=== PATIENT | female | born 1950 | race African-American/Black ===

== ENCOUNTER 2016-11-03 16:30 | Observation (INO) | payer OTHER ==
[2016-11-03] MEDS: NS 1000 ML 1,000 ML IV SCH (20:03)
[2016-11-03 20:11] LABS: BASOPHILS # (AUTO) 0.1 X10^3/uL (0.0-0.1); BASOPHILS % (AUTO) 1.6 % (0.2-1.0); EOSINOPHILS # (AUTO) 0.2 x10^3/uL (0.0-0.2); EOSINOPHILS % (AUTO) 2.5 % (0.9-2.9); HEMATOCRIT 29.5 % (36.0-47.0); LYMPHOCYTES # (AUTO) 1.4 X10^3/uL (1.3-2.9); LYMPHOCYTES % (AUTO) 20.3 % (21.0-51.0); MEAN CORPUSCULAR HEMOGLOBIN 30.1 pg (27.0-34.0); MEAN CORPUSCULAR HGB CONC 33.9 g/dL (33.0-35.0); MEAN CORPUSCULAR VOLUME 88.6 fL (80.0-100.0); MEAN PLATELET VOLUME 8.2 fL (7.4-11.0); MONOCYTES # (AUTO) 0.8 x10^3/uL (0.3-0.8); MONOCYTES % (AUTO) 11.8 % (0.0-13.0); NEUTROPHILS # (AUTO) 4.4 x10^3/uL (2.2-4.8); NEUTROPHILS % (AUTO) 63.8 % (42.0-75.0); PLATELET COUNT 152 X10^3/uL (150.0-450.0); RED BLOOD COUNT 3.33 X10^6/uL (3.5-5.4); RED CELL DISTRIBUTION WIDTH 14.4 % (11.6-16.5); WHITE BLOOD COUNT 6.9 X10^3/uL (3.6-10.0)
[2016-11-03 20:31] LABS: BILIRUBIN,URINE NEGATIVE (NEGATIVE); BLOOD/HEMOGLOBIN,URINE 1+ (NEGATIVE); GLUCOSE, URINE NEGATIVE (NEGATIVE); KETONES,URINE NEGATIVE (NEGATIVE); LEUKOCYTE ESTERASE ,URINE NEGATIVE (NEGATIVE); NITRITES,URINE NEGATIVE (NEGATIVE); PROTEIN,URINE 4+ (NEGATIVE); UROBILINOGEN,URINE NORMAL (NORMAL)
[2016-11-03 20:41] LABS: APPEARANCE,URINE HAZY (CLEAR); COLOR,URINE YELLOW (YELLOW); RBC,URINE 0-2 /HPF (NEGATIVE); SQUAMOUS EPITHELIAL CELL,UR FEW /HPF (NEGATIVE)
[2016-11-03] MEDS: PLAVIX PO SCH (20:41)
[2016-11-03 20:42] LABS: BACTERIA,URINE 1+ /HPF (NEGATIVE)
[2016-11-03] MEDS: ASPIRIN EC 81 MG PO SCH (20:42)
[2016-11-03] MEDS: NEURONTIN CAP 400 MG PO SCH (20:42)
[2016-11-03] MEDS: ZOCOR TAB 40 MG PO SCH (20:42)
[2016-11-03] MEDS: SNACK - Diabetic Appropriate PO SCH (20:45)
[2016-11-03 21:06] LABS: ALANINE AMINOTRANSFERASE 18 Units/L (12-78); ALBUMIN 3.3 g/dL (3.4-5.0); ALKALINE PHOSPHATASE 31 Units/L (46-116); ASPARTATE AMINO TRANSFERASE 18 Units/L (15-37); BLOOD UREA NITROGEN 36 mg/dL (7-18); CALCIUM 9.3 mg/dL (8.5-10.1); CARBON DIOXIDE 22.9 mmol/L (21-32); CHLORIDE 107 mmol/L (98-107); COR CA(FOR HYPOALB) 9.9 mg/dL (8.5-10.1); CREATININE 3.74 mg/dL (0.55-1.02); GLUCOSE 89 mg/dL (65-99); SODIUM 136 mmol/L (136-145); TOTAL PROTEIN 7.5 g/dL (6.4-8.2); eGFR BLACK RACES 16 (>60); eGFR NON BLACK RACES 13 (>60)
[2016-11-03] MEDS ORDERED: LEVEMIR SC SCH (22:00)
[2016-11-03] MEDS: APRESOLINE TAB 25 MG PO SCH (22:15)
[2016-11-04 05:28] LABS: ALANINE AMINOTRANSFERASE 15 Units/L (12-78); ALBUMIN 2.9 g/dL (3.4-5.0); ALKALINE PHOSPHATASE 25 Units/L (46-116); ASPARTATE AMINO TRANSFERASE 15 Units/L (15-37); BLOOD UREA NITROGEN 37 mg/dL (7-18); CALCIUM 8.8 mg/dL (8.5-10.1); CARBON DIOXIDE 23.4 mmol/L (21-32); CHLORIDE 109 mmol/L (98-107); COR CA(FOR HYPOALB) 9.7 mg/dL (8.5-10.1); CREATININE 3.77 mg/dL (0.55-1.02); SODIUM 140 mmol/L (136-145); TOTAL PROTEIN 6.8 g/dL (6.4-8.2); eGFR BLACK RACES 15 (>60); eGFR NON BLACK RACES 13 (>60)
[2016-11-04 05:30] LABS: GLUCOSE 48 mg/dL (65-99)
[2016-11-04 05:45] LABS: BASOPHILS % (AUTO) 0.4 % (0.2-1.0); EOSINOPHILS # (AUTO) 0.2 x10^3/uL (0.0-0.2); EOSINOPHILS % (AUTO) 2.9 % (0.9-2.9); HEMATOCRIT 27.8 % (36.0-47.0); HEMOGLOBIN 9.3 g/dL (12.0-16.0); LYMPHOCYTES # (AUTO) 1.8 X10^3/uL (1.3-2.9); LYMPHOCYTES % (AUTO) 28.4 % (21.0-51.0); MEAN CORPUSCULAR HGB CONC 33.7 g/dL (33.0-35.0); MEAN PLATELET VOLUME 8.9 fL (7.4-11.0); MONOCYTES # (AUTO) 0.8 x10^3/uL (0.3-0.8); MONOCYTES % (AUTO) 12.7 % (0.0-13.0); NEUTROPHILS # (AUTO) 3.6 x10^3/uL (2.2-4.8); NEUTROPHILS % (AUTO) 55.6 % (42.0-75.0); PLATELET COUNT 145 X10^3/uL (150.0-450.0); RED BLOOD COUNT 3.12 X10^6/uL (3.5-5.4); RED CELL DISTRIBUTION WIDTH 14.3 % (11.6-16.5); WHITE BLOOD COUNT 6.5 X10^3/uL (3.6-10.0)
[2016-11-04] MEDS: APRESOLINE TAB 25 MG PO SCH ×3 (05:48→22:50)
--- NOTE | 2016-11-04 06:18 | RAD ---
HISTORY: Hypertension Study: Chest one view Comparison: February 04, 2016 Findings: The trachea is midline. The cardiac silhouette is enlarged. No congestive heart failure is noted.. The lungs are clear without focal infiltrate or effusion. The bony thorax is unremarkable. IMPRESSION: 1. Cardiomegaly without congestive heart failure 2. Lungs clear Reported By:
[2016-11-04] MEDS: PLAVIX PO SCH (08:01)
[2016-11-04] MEDS: ASPIRIN EC 81 MG PO SCH (08:01)
[2016-11-04] MEDS: NEURONTIN CAP 400 MG PO SCH ×2 (08:01→21:36)
[2016-11-04] MEDS: ZESTRIL TAB 40 MG PO SCH (08:01)
[2016-11-04] MEDS: NS 1000 ML 1,000 ML IV SCH ×2 (08:02→21:38)
[2016-11-04 08:27] VITALS: BMI 28.3
[2016-11-04] MEDS ORDERED: CALAN SR 180 MG PO SCH (09:00)
--- NOTE | 2016-11-04 11:29 | RAD ---
HISTORY: Shortness of breath, acute CVA. Study: Portable chest. Comparison: Chest x-ray dated November 03, 2016. Findings: The trachea is midline. The cardiac silhouette is unchanged. Bibasilar scarring versus atelectasis . No obvious focal consolidation, pleural effusion, or pneumothorax. Chronic emphysematous changes. Surgical clip within the left upper lobe. The bony thorax is unremarkable. IMPRESSION: 1. No acute cardiopulmonary disease. Reported By:
[2016-11-04] MEDS: PriLOSEC PO SCH (13:11)
[2016-11-04] MEDS: ZANTAC PO SCH ×2 (13:11→21:35)
--- NOTE | 2016-11-04 14:11 | DR.UPDATE ---
H&P Update History and Physical Update: WAS SEEN IN OUR OFFICE TODAY. SHE WAS SENT FOR OUTPATIENT BRAIN CT. BRAIN CT REPORTED SMALL FOCUS OF DECREASED ATTENUATION IN THE LEFT SOPHIA WHICH COULD REPRESENT A SMALL LACUNE OR INFACRT OF UNCERTAIN AGE. SHE WAS ADMITTED FOR FURTHER TREATMENT AND EVALUATION. WE WILL CHECK A MRI/MRA BRAIN. A H&P WAS COMPLETED PRIOR TO ADMISSION. SHE HAS BEEN SEEN AND EXAMINED WITH NO CHANGES NOTED. Changes noted: NO Yes with the following:
--- NOTE | 2016-11-04 16:57 | PCM.PROG ---
Progress Note - Progress Note for Day of Date: 11/04/16 - Subjective Subjective: WAS A DIRECT ADMISSION FROM OUR OFFICE YESTERDAY FOR CONCERN OF AN ACUTE CVA. PATIENT WAS ALERT AND ORIENTED, IN BED, ON MORNING ROUNDS. PATIENT VERBALIZES COMPLAINTS OF GENERALIZED WEAKNESS AT THIS TIME. LUNGS ARE CLEAR ON AUSCULTATION. PUPILS PERLLA, EQUAL AND STRONG HANDGRIPS BILATERALLY. VITALS THIS AM ARE 97.9, 55, 25, 91%, 124/44. CBC REPORTS WBC 6.5, RBC 3.2, HGB 9.3, HCT 27.8. CMP REPORTS SODIUM 140, POTASSIUM 4.2, BUN 37, CREATININE 3.77. AKLALINE PHOSPHATASE 25, TOTAL PROTEIN 6.8, ALBUMIN 2.9. GLUCOSE THIS MORNING WAS 67. CHEST XRAY REPORTED CARDIOMEGALY WITHOUT CHF. WE ORDERED A MRI/MRA BRAIN AND ARE WAITING FOR TEST TO BE DONE. WE WILL PLAN TO RECHECK LABS AND XRAY AND FOLLOW UP WITH PATIENT IN AM. - Past Medical Family Social History Past Med/Fam/Surg Hx: No changes since H&P Allergies: Allergies MS Iodine [Iodine] Allergy (Unknown, Verified 11/04/16 07:20) PT STATED "IT HAS BEEN SO LONG AGO I DO NOT REMEMBER WHAT KIND OF REACTION I HAD" - Review of Systems ROS: No change since H&P - Vital Signs and I&O's Vital Signs: Temperature 98.4 F Pulse Rate [Apical] 67 Respiratory Rate 17 Blood Pressure [Left Arm] 107/53 Blood Pressure [Right Arm] 166/71 Blood Pressure 149/58 O2 Sat by Pulse Oximetry 99 Intake and Output: Intake & Output 11/02/16 11/03/16 11/04/16 11/05/16 11:59 11:59 11:59 11:59 Intake Total 943 907 Output Total 30 Balance 913 907 - Physical Exam Oriented: Normal. negative: Time, Person, Place, Not Oriented, Unable to test, Other Eyes: Normal. negative: Blurred Vision, Diplopia, Discharge, Pain, Redness, Photophobia, Other Ear: Normal. negative: Right, Left, Swelling, Ecchymosis, Hemotypanum, Abrasion , Laceration Nose: Normal. negative: Injected, Discharge, Blood, Other Throat: Normal. negative: Tonsillar Hypertrophy, Red, Exudate, Dry, Other Respiratory: Normal. negative: Right, Left, Generalized, Superior, Inferior, Diminished, Wheezes, Rales, Rhonchi, OTHER Cardiovascular: Normal. negative: Tachycardia, Bradycardia, Irregular, S3, S4, Systolic, Diastolic, Murmur, Edema, Other Auscultation: Bowel Sounds: Normal. negative: Bruit, Absent, Increased, Decreased, High Pitched, Other Palpation: Normal Tenderness: Normal. negative: Diffuse, RUQ, RLQ, LUQ, LLQ, Epigastric, Periumbilical, Suprapubic, Mild, Moderate, Severe, Rebound, Guarding, Rigidity, Other Skin: Normal. negative: Decreased Turgur, Rash, Papular, Macular, Maculopapular , Vesicular, Pustular, Petechial, Red, Tender, Hot, Diaphoresis, Wound, Bruising , Ecchymosis, Other Musculoskeletal: Normal. negative: Right, Left, Shoulder, Clavicle, Arm, Elbow , Forearm, Wrist, Hand, Hip, Thigh, Knee, Leg, Ankle, Foot, Back:Thoracic, Back: Lumbar, Back:Midline, Back:Paraspinous, Pelvis, Swelling, Tender, Deformity, Pulse Deficit, Motor Deficit, Sensory Deficit, Instability, Crepitance Psychiatric: Normal. negative: Anxiety, Depression, Agitation, Other Mood Description: Calm. negative: Angry, Apathetic, Depressed, Fearful, Flat, Happy, Hostile, Sad, Suspicious, Withdrawn, Anxious, Appropriate, Labile Affect: Normal. negative: Angry, Anxious, Depressed, Flat, Hysterical, Quiet, Violent Speech Pattern: Clear, Appropriate - Laboratory and Diagnostics Result Diagrams: 11/04/16 04:35 11/04/16 05:45 Labs: Laboratory WBC 6.5 X10^3/uL (3.6-10.0) 11/04/16 04:35 RBC 3.12 X10^6/uL (3.5-5.4) L 11/04/16 04:35 Hgb 9.3 g/dL (12.0-16.0) L 11/04/16 04:35 Hct 27.8 % (36.0-47.0) L 11/04/16 04:35 MCV 89.0 fL (80.0-100.0) 11/04/16 04:35 MCH 30.0 pg (27.0-34.0) 11/04/16 04:35 MCHC 33.7 g/dL (33.0-35.0) 11/04/16 04:35 RDW 14.3 % (11.6-16.5) 11/04/16 04:35 Plt Count 145 X10^3/uL (150.0-450.0) L 11/04/16 04:35 MPV 8.9 fL (7.4-11.0) 11/04/16 04:35 Neut % 55.6 % (42.0-75.0) 11/04/16 04:35 Lymph % 28.4 % (21.0-51.0) 11/04/16 04:35 [place] % 12.7 % (0.0-13.0) 11/04/16 04:35 Eos % 2.9 % (0.9-2.9) 11/04/16 04:35 Baso % 0.4 % (0.2-1.0) 11/04/16 04:35 Neut # 3.6 x10^3/uL (2.2-4.8) 11/04/16 04:35 Lymph # 1.8 X10^3/uL (1.3-2.9) 11/04/16 04:35 [place] # 0.8 x10^3/uL (0.3-0.8) 11/04/16 04:35 Eos # 0.2 x10^3/uL (0.0-0.2) 11/04/16 04:35 Baso # 0.0 X10^3/uL (0.0-0.1) 11/04/16 04:35 Absolute Nucleated RBC 0.0 /100WBC 11/04/16 04:35 Sodium 140 mmol/L (136-145) 11/04/16 04:35 Corrected Sodium TNP 11/04/16 04:35 Potassium 4.2 mmol/L (3.5-5.1) 11/04/16 04:35 Chloride 109 mmol/L (98-107) H 11/04/16 04:35 Carbon Dioxide 23.4 mmol/L (21-32) 11/04/16 04:35 BUN 37 mg/dL (7-18) H 11/04/16 04:35 Creatinine 3.77 mg/dL (0.55-1.02) H 11/04/16 04:35 Est GFR (MDRD) Af Amer 15 (>60) L 11/04/16 04:35 Est GFR (MDRD) Non-Af 13 (>60) L 11/04/16 04:35 Glucose 67 mg/dL (65-99) 11/04/16 05:45 Calcium 8.8 mg/dL (8.5-10.1) 11/04/16 04:35 Corrected Calcium 9.7 mg/dL (8.5-10.1) 11/04/16 04:35 Total Bilirubin 0.30 mg/dL (0.2-1.0) 11/04/16 04:35 AST 15 Units/L (15-37) 11/04/16 04:35 ALT 15 Units/L (12-78) 11/04/16 04:35 Alkaline Phosphatase 25 Units/L (46-116) L 11/04/16 04:35 Total Protein 6.8 g/dL (6.4-8.2) 11/04/16 04:35 Albumin 2.9 g/dL (3.4-5.0) L 11/04/16 04:35 Globulin 3.9 g/dL (2.5-4.5) 11/04/16 04:35 Albumin/Globulin Ratio 0.7 Ratio (1.1-2.1) L 11/04/16 04:35 Specimen Type Clean catch urine 11/03/16 20:15 Urine Color Yellow (YELLOW) 11/03/16 20:15 Urine Appearance Hazy (CLEAR) 11/03/16 20:15 Urine pH 5.0 (5.0 - 8.0) 11/03/16 20:15 Ur Specific [place] 1.020 (1.000-1.030) 11/03/16 20:15 Urine Protein 4+ (NEGATIVE) 11/03/16 20:15 Urine Glucose (UA) Negative (NEGATIVE) 11/03/16 20:15 Urine Ketones Negative (NEGATIVE) 11/03/16 20:15 Urine Occult Blood 1+ (NEGATIVE) 11/03/16 20:15 Urine Nitrite Negative (NEGATIVE) 11/03/16 20:15 Urine Bilirubin Negative (NEGATIVE) 11/03/16 20:15 Urine Urobilinogen Normal (NORMAL) 11/03/16 20:15 Ur Leukocyte Esterase Negative (NEGATIVE) 11/03/16 20:15 Urine RBC 0-2 /HPF (NEGATIVE) 11/03/16 20:15 Urine WBC 0-3 /HPF (NEGATIVE) 11/03/16 20:15 Ur Squamous Epith Cells Few /HPF (NEGATIVE) 11/03/16 20:15 Urine Bacteria 1+ /HPF (NEGATIVE) 11/03/16 20:15 Ur Culture Indicated? No/not indicated 11/03/16 20:15 - Plan (1) CVA (cerebral vascular accident) Status: Acute Qualifiers: CVA mechanism: unspecified Precerebral and cerebral artery: P Laterality of affected vessel: L Qualified Code(s): I63.9 - Cerebral infarction, unspecified Plan: CHECK MRI/MRA, CONTINUE ASA, CONTINUE PLAVIX, CONTINUE TO MONITOR (2) Renal failure Status: Acute Qualifiers: Renal failure chronicity: chronic Acute renal failure type: A Chronic kidney disease stage: unspecified stage Qualified Code(s): N18.9 - Chronic kidney disease, unspecified Plan: NS @ 50ML/HR, CONTINUE TO MONITOR (3) Diabetes mellitus, type 2 Status: Chronic Qualifiers: Diabetes mellitus complication status: with kidney complications Diabetes mellitus complication detail: with chronic kidney disease Diabetic retinopathy severity: D Proliferative retinopathy type: P Diabetes mellitus macular edema: D Diabetes mellitus assisted insulin use: with assisted use Laterality: L Chronic kidney disease stage: stage 4 (severe) Qualified Code(s): E11.22 - Type 2 diabetes mellitus with diabetic chronic kidney disease Plan: OTBS, CONTINUE TO MONITOR (4) Hypertension Status: Chronic Qualifiers: Hypertension type: essential hypertension Qualified Code(s): I10 - Essential (primary) hypertension Plan: CONTINUE HYDRALAZINE, LISINOPRIL, VERAPAMIL, CONTINUE TO MONITOR (5) GERD (gastroesophageal reflux disease) Status: Chronic Qualifiers: Esophagitis presence: E Plan: CONTINUE PRILOSEC, CONTINUE ZANTAC, CONTINUE TO MONITOR
--- NOTE | 2016-11-04 18:26 | MRI ---
MRI Brain without contrast HISTORY: Headache dizziness and questionable abnormality on recent head CT Comparison:11/03/16 Technique: Multiplanar multi-sequence MRI of the brain was obtained utilizing standard departmental protocol. Sagittal and axial T1 weighted images were obtained. Axial T2 and flair weighted images were performed as well. Axial diffusion weighted and ADC trace mapping was performed. Findings: There is mild bilateral periventricular and deep white matter FLAIR in T to signal hyperintensity. A ddition there is small amount of increased T2 signal within the left occipital lobe consistent with gliosis in the setting of chronic microvascular ischemic disease. The midline structures appear unremarkable. The evaluation of the brain parenchyma demonstrates no abnormal signal characteristics to suggest intraparenchymal mass or hemorrhage. No extra-axial flui d collections are observed. The ventricular system appears symmetric and nondilated. The CP angle is normal in its appearance without brainstem mass or evidence for acoustic neuroma. The flow void s on both T1 and T2 weighted imaging appear unremarkable. Evaluation of the diffusion weighted imag ing does not demonstrate abnormal signal characteristics to suggest acute ischemic change. The extr acranial structures are unremarkable. IMPRESSION: 1.No acute intracranial abnormality. 2. Bilateral periventricular and deep white matter FLAIR and T2 signal hyperintensity most consisten t chronic microvascular ischemic disease. Curvilinear increased T2 signal within the left occipital lobe also likely represents sequela of chronic ischemic disease/gliosis. Reported By:
--- NOTE | 2016-11-04 18:30 | MRI ---
MRA brain without contrast Indication: Hypertension with blurred vision Technique: 3D [id number] MRA of the brain was performed. No IV contrast administration was perfo rmed. 3D reconstructed mid imaging of the [place] was also provided. Findings: Anterior intracranial arterial circulation is normal, there is no stenosis, occlusion or a neurysmal dilatation. The posterior intracranial arterial circulation demonstrates persistent circulation of bilateral dental professional. No stenosis occlusion or aneurysmal dilatation. The vertebral arterie s are normal in caliber without dominance. Impression: 1.No hemodynamic significant stenosis, occlusion or evidence of aneurysmal dilatation within the ant erior or posterior intracranial arterial circulation. 2. Persistent circulation involving bilateral dental professional. Reported By:
[2016-11-04] MEDS: SNACK - Diabetic Appropriate PO SCH (20:00)
[2016-11-04] MEDS ORDERED: MILK OF MAGNESIA PO SCH (21:00)
[2016-11-04] MEDS ORDERED: COLACE CAP 100 MG PO SCH (21:00)
[2016-11-04] MEDS: ZOCOR TAB 40 MG PO SCH (21:36)
[2016-11-05] MEDS: NS 1000 ML 1,000 ML IV SCH (03:00)
[2016-11-05] MEDS: APRESOLINE TAB 25 MG PO SCH (06:24)
[2016-11-05 06:28] LABS: BASOPHILS % (AUTO) 0.3 % (0.2-1.0); EOSINOPHILS # (AUTO) 0.2 x10^3/uL (0.0-0.2); EOSINOPHILS % (AUTO) 2.1 % (0.9-2.9); HEMOGLOBIN 8.8 g/dL (12.0-16.0); LYMPHOCYTES # (AUTO) 1.7 X10^3/uL (1.3-2.9); LYMPHOCYTES % (AUTO) 20.8 % (21.0-51.0); MEAN CORPUSCULAR HEMOGLOBIN 30.5 pg (27.0-34.0); MEAN CORPUSCULAR HGB CONC 33.8 g/dL (33.0-35.0); MEAN CORPUSCULAR VOLUME 90.2 fL (80.0-100.0); MEAN PLATELET VOLUME 9.2 fL (7.4-11.0); MONOCYTES # (AUTO) 1.1 x10^3/uL (0.3-0.8); MONOCYTES % (AUTO) 13.7 % (0.0-13.0); NEUTROPHILS # (AUTO) 5.1 x10^3/uL (2.2-4.8); NEUTROPHILS % (AUTO) 63.1 % (42.0-75.0); PLATELET COUNT 144 X10^3/uL (150.0-450.0); RED BLOOD COUNT 2.89 X10^6/uL (3.5-5.4); RED CELL DISTRIBUTION WIDTH 14.5 % (11.6-16.5); WHITE BLOOD COUNT 8.1 X10^3/uL (3.6-10.0)
[2016-11-05 06:42] LABS: ALBUMIN 2.9 g/dL (3.4-5.0); CALCIUM 8.3 mg/dL (8.5-10.1); CARBON DIOXIDE 20.7 mmol/L (21-32); COR CA(FOR HYPOALB) 9.2 mg/dL (8.5-10.1); CREATININE 4.49 mg/dL (0.55-1.02); TOTAL PROTEIN 6.7 g/dL (6.4-8.2)
[2016-11-05] MEDS: ASPIRIN EC 81 MG PO SCH (09:22)
[2016-11-05] MEDS: ZANTAC PO SCH (09:22)
[2016-11-05] MEDS: ZESTRIL TAB 40 MG PO SCH (09:22)
[2016-11-05] MEDS: PLAVIX PO SCH (09:23)
[2016-11-05] MEDS: PriLOSEC PO SCH (09:23)
[2016-11-05] MEDS: NEURONTIN CAP 400 MG PO SCH (09:23)
[2016-11-05 14:39] VITALS: BP 102/32
== END 2016-11-05 12:50 | disposition home or self-care (01) ==
LOC: ICU 16:30
PROVIDERS: ADMIT Internal Medicine; ATTEND Internal Medicine
DX: I63.8 Other cerebral infarction (principal); I10 Essential (primary) hypertension; E11.65 Type 2 diabetes mellitus with hyperglycemia; N17.8 Other acute kidney failure; D64.89 Other specified anemias; R94.4 Abnormal results of kidney function studies; I51.7 Cardiomegaly; R20.2 Paresthesia of skin; R53.1 Weakness
CPT/HCPCS: 36415; 70544; 70551; 71010; 80053; 81001; 82947; 85025; A4216; A4222; 1956; G0378

== ENCOUNTER 2016-11-07 02:20 | Emergency (ER) | payer OTHER ==
[2016-11-07 02:35] VITALS: BMI 28.3
[2016-11-07] MEDS ORDERED: DUONEB 0.5 MG/3 MG ONE ×2 (02:54→03:20)
[2016-11-07 02:57] LABS: BASOPHILS # (AUTO) 0.1 X10^3/uL (0.0-0.1); BASOPHILS % (AUTO) 0.6 % (0.2-1.0); EOSINOPHILS # (AUTO) 0.1 x10^3/uL (0.0-0.2); EOSINOPHILS % (AUTO) 0.5 % (0.9-2.9); HEMATOCRIT 27.7 % (36.0-47.0); HEMOGLOBIN 9.2 g/dL (12.0-16.0); LYMPHOCYTES # (AUTO) 1.3 X10^3/uL (1.3-2.9); LYMPHOCYTES % (AUTO) 9.7 % (21.0-51.0); MEAN CORPUSCULAR HEMOGLOBIN 30.1 pg (27.0-34.0); MEAN CORPUSCULAR HGB CONC 33.2 g/dL (33.0-35.0); MEAN CORPUSCULAR VOLUME 90.5 fL (80.0-100.0); MEAN PLATELET VOLUME 9.4 fL (7.4-11.0); MONOCYTES # (AUTO) 1.2 x10^3/uL (0.3-0.8); MONOCYTES % (AUTO) 9.5 % (0.0-13.0); NEUTROPHILS # (AUTO) 10.4 x10^3/uL (2.2-4.8); NEUTROPHILS % (AUTO) 79.7 % (42.0-75.0); PLATELET COUNT 179 X10^3/uL (150.0-450.0); RED BLOOD COUNT 3.06 X10^6/uL (3.5-5.4); RED CELL DISTRIBUTION WIDTH 14.7 % (11.6-16.5); WHITE BLOOD COUNT 13.1 X10^3/uL (3.6-10.0)
[2016-11-07] MEDS ORDERED: DUONEB 0.5 MG/3 MG NEB ONE ×2 (03:00→03:20)
[2016-11-07] MEDS ORDERED: SOLU-Medrol 125 MG VIAL IVP ONE (03:02)
--- NOTE | 2016-11-07 03:02 | RAD ---
EXAM: Chest X-ray INDICATION: Shortness of breath COMPARISION: Prior exam from November 04, 2016 TECHNIQUE: Single view FINDINGS: The heart is mildly enlarged and there is central vascular congestion. The interstitial markings are prominent bilaterally. No pneumothorax. There is a right-sided pleural effusion. Alveolar consolida tion is seen throughout both lungs, predominately in the lung bases. The regional skeleton is intact . IMPRESSION: Findings are most characteristic of changes associated congestive heart failure. There is cardiomega ly, central vascular congestion, and pulmonary edema. There is a right-sided pleural effusion. Reported By:
[2016-11-07] MEDS ORDERED: SOLU-Medrol 125 MG VIAL ONE (03:05)
[2016-11-07 03:13] LABS: ALANINE AMINOTRANSFERASE 19 Units/L (12-78); ALBUMIN 3.4 g/dL (3.4-5.0); ALKALINE PHOSPHATASE 35 Units/L (46-116); ASPARTATE AMINO TRANSFERASE 18 Units/L (15-37); BLOOD UREA NITROGEN 61 mg/dL (7-18); CALCIUM 8.6 mg/dL (8.5-10.1); CHLORIDE 102 mmol/L (98-107); COR NA(FOR HYPERGLY) 131 mmol/L (136-145); CREATINE KINASE 66 Units/L (26-192); CREATINE KINASE MB < 1.0 ng/mL (0-4.0); CREATININE 5.94 mg/dL (0.55-1.02); GLUCOSE 199 mg/dL (65-99); SODIUM 129 mmol/L (136-145); TOTAL PROTEIN 7.9 g/dL (6.4-8.2); TROPONIN I < 0.02 ng/mL (0-1.5); eGFR BLACK RACES 9 (>60); eGFR NON BLACK RACES 8 (>60)
[2016-11-07 03:16] LABS: B-TYPE NATRIURETIC PEPTIDE 207 pg/mL (0-79)
[2016-11-07] MEDS ORDERED: KAYEXALATE ONE (03:26)
[2016-11-07] MEDS ORDERED: LASIX IVP ONE ×2 (03:29→03:30)
[2016-11-07] MEDS ORDERED: KAYEXALATE PO ONE (03:31)
--- NOTE | 2016-11-07 03:38 | DR.GENAD ---
HPI - PCP Primary Care Physician: DUANE - Complaint/Symptoms Chief Complaint Doctors Comments: SOB Chief Complaint:: SLURRED SPEECH SHORTNESS OF BREATH, WEAK. Self Treatment fo Chief Complaint: PATIENT FAMILY STATES THAT SINCE BEING RELEASED ON THE PATIENT HAS DEVELOPED SLURRED SPEECH AND IS STILL SHORT OF BREATH. ALSO THAT PATIENT SOUNDS WET IN THE LUNGS AND HAD A BLOOD GLUCOSE OVER 300 50 UNITS OF LEVEMIR - Nurses notes reviewed Nurses Notes Review: Yes - Source History Provided: Patient - Mode of Arrival Mode of Arrival: Ambulatory - Timing Onset of Chief Complaint: 11/07/16 - Duration Duration: Since Onset How lon Duration: Hours - Severity Severity: Moderate - Modifying Factors Worsens:: lying flat - Associated Signs and Symptoms Associated Signs and Symptoms: nonproductive cough PMH - PMH Past Medical History: Yes Past Medical History: Diabetes, Hypertension, Renal Disease Past Surgical History: Yes Surgical History: Cholecystectomy - Family History History of Family Medical Conditions: Yes Family Medical History: Diabetes Mellitus, Hypertension - Social History Does patient currently use any type of tobacco product: No Have you used tobacco products in the last 12 months: No Type of Tobacco Use: None Does any household member use tobacco: No Alcohol Use: None Do you use any recreational Drugs:: No Lives With: Family Lives Where: Home - infectious screening In the last 2 months have you had wt loss of >10#?: NO Have you had fever, night sweats or hemotysis?: No Have you traveled outside the country in the last 6 months?: No Isolation: Standard ROS - Review of Systems Constitutional: No Symptoms Reported Respiratoy: Productive Cough, Short of Breath, Wheezing Cardiovascular: No Symptoms Reported Gastrointestinal/Abdominal: No Symptoms Reported Genitourinary: No Symptoms Reported Neurological: No Symptoms Reported Musculoskeletal: No Symptoms Reported Integumentary: No Symptoms Reported Hematologic/Lymphatic: No Symptoms Reported Endocrine: No Symptoms Reported Psychiatric: No Symptoms Reported, Anxiety All Other Systems: Reviewed and Negative PE - Vital Signs Vitals: Temperature 98.1 F Pulse Rate 79 Blood Pressure [Left Arm] 102/32 Blood Pressure [Right Arm] 166/71 Blood Pressure 88/54 O2 Sat by Pulse Oximetry 75 - General Limitations: No Limitations General Appearance: Alert, Anxious, In Distress - Head Head Exam: Normal Inspection, Atraumatic - Eyes Eye exam: Normal Appearance - ENT ENT Exam: Normal Exam, Normal Oropharynx External Ear Exam: Normal External Inspection Nose Exam: Normal Nose Exam Mouth Exam: Normal Inspection Throat Exam: Normal Inspection - Neck Neck Exam: Normal Inspection - Chest Chest Inspection: Symmetric Chest Wall Rise - Respiratory Respiratory Exam: Respiratory Distress Respiratory Exam: Bilateral Wheezing, Bilateral Crackles, Bilateral Decreased Breath Sounds - Cardiovascular Cardiovascular Exam: Regular Rate, Normal Rhythm, Normal Heart Sounds - Abdominal Exam Abdominal Exam: Normal Inspection, Normal Bowel Sounds, Soft - Extremities Extremities Exam: Normal Inspection - Back Back Exam: Normal Inspection - Neurologic Neurological Exam: Alert, Oriented X3, CN II-XII Intact - Psychiatric Psychiatric Exam: Normal Affect, Normal Mood - Skin Skin Exam: Warm, Dry, Intact, Normal Color ROR - Labs Reviewed Result Diagrams: 11/07/16 02:40 11/07/16 02:40 Laboratory: WBC 13.1 X10^3/uL (3.6-10.0) H 11/07/16 02:40 RBC 3.06 X10^6/uL (3.5-5.4) L 11/07/16 02:40 Hgb 9.2 g/dL (12.0-16.0) L 11/07/16 02:40 Hct 27.7 % (36.0-47.0) L 11/07/16 02:40 MCV 90.5 fL (80.0-100.0) 11/07/16 02:40 MCH 30.1 pg (27.0-34.0) 11/07/16 02:40 MCHC 33.2 g/dL (33.0-35.0) 11/07/16 02:40 RDW 14.7 % (11.6-16.5) 11/07/16 02:40 Plt Count 179 X10^3/uL (150.0-450.0) 11/07/16 02:40 MPV 9.4 fL (7.4-11.0) 11/07/16 02:40 Neut % 79.7 % (42.0-75.0) H 11/07/16 02:40 Lymph % 9.7 % (21.0-51.0) L 11/07/16 02:40 [place] % 9.5 % (0.0-13.0) 11/07/16 02:40 Eos % 0.5 % (0.9-2.9) L 11/07/16 02:40 Baso % 0.6 % (0.2-1.0) 11/07/16 02:40 Neut # 10.4 x10^3/uL (2.2-4.8) H 11/07/16 02:40 Lymph # 1.3 X10^3/uL (1.3-2.9) 11/07/16 02:40 [place] # 1.2 x10^3/uL (0.3-0.8) H 11/07/16 02:40 Eos # 0.1 x10^3/uL (0.0-0.2) 11/07/16 02:40 Baso # 0.1 X10^3/uL (0.0-0.1) 11/07/16 02:40 Absolute Nucleated RBC 0.1 /100WBC 11/07/16 02:40 Sodium 129 mmol/L (136-145) L 11/07/16 02:40 Corrected Sodium 131 mmol/L (136-145) L 11/07/16 02:40 Potassium 6.9 mmol/L (3.5-5.1) H* 11/07/16 02:40 Chloride 102 mmol/L (98-107) 11/07/16 02:40 Carbon Dioxide 19.0 mmol/L (21-32) L 11/07/16 02:40 BUN 61 mg/dL (7-18) H 11/07/16 02:40 Creatinine 5.94 mg/dL (0.55-1.02) H 11/07/16 02:40 Est GFR (MDRD) Af Amer 9 (>60) L 11/07/16 02:40 Est GFR (MDRD) Non-Af 8 (>60) L 11/07/16 02:40 Glucose 199 mg/dL (65-99) H 11/07/16 02:40 Calcium 8.6 mg/dL (8.5-10.1) 11/07/16 02:40 Corrected Calcium TNP 11/07/16 02:40 Total Bilirubin 0.40 mg/dL (0.2-1.0) 11/07/16 02:40 AST 18 Units/L (15-37) 11/07/16 02:40 ALT 19 Units/L (12-78) 11/07/16 02:40 Alkaline Phosphatase 35 Units/L (46-116) L 11/07/16 02:40 Creatine Kinase 66 Units/L (26-192) 11/07/16 02:40 CK-MB (CK-2) < 1.0 ng/mL (0-4.0) 11/07/16 02:40 Troponin I < 0.02 ng/mL (0-1.5) 11/07/16 02:40 Total Protein 7.9 g/dL (6.4-8.2) 11/07/16 02:40 Albumin 3.4 g/dL (3.4-5.0) 11/07/16 02:40 Globulin 4.5 g/dL (2.5-4.5) 11/07/16 02:40 Albumin/Globulin Ratio 0.8 Ratio (1.1-2.1) L 11/07/16 02:40 - Diagnosis Discharge Problem: Renal failure (ARF), acute on chronic, CHF (congestive heart failure) - Discharge Plan Disposition: Disch/Tx to Hospital Condition: Stable - Follow ups/Referrals Follow ups/Referrals: Giovany Olvera [Primary Care Provider] - 3 days - Instructions Additional Notes - Additional Notes Additional Notes: I spoke with at [facility] in [place] and he agrees to accept this patient in transfer.
[2016-11-07 03:56] LABS: ABG BASE EXCESS -9.9 mmol/L (-2.0-2.0)
[2016-11-07] MEDS ORDERED: HumuLIN R ONE (03:56)
[2016-11-07] MEDS ORDERED: SODIUM BICARBONATE 8.4% INJ ADULT ONE (03:56)
[2016-11-07 03:57] LABS: ABG ALLEN TEST POS; ABG HCO3 15.1 mmol/L (22-26)
[2016-11-07] MEDS ORDERED: HumuLIN R IV ONE (03:57)
[2016-11-07] MEDS ORDERED: SODIUM BICARBONATE 8.4% INJ ADULT IVP ONE (03:58)
[2016-11-07 04:10] VITALS: BP 120/57
[2016-11-07 04:15] LABS: BILIRUBIN,URINE 1+ (NEGATIVE); BLOOD/HEMOGLOBIN,URINE NEGATIVE (NEGATIVE); GLUCOSE, URINE NEGATIVE (NEGATIVE); KETONES,URINE NEGATIVE (NEGATIVE); LEUKOCYTE ESTERASE ,URINE NEGATIVE (NEGATIVE); NITRITES,URINE NEGATIVE (NEGATIVE); PROTEIN,URINE 3+ (NEGATIVE); UROBILINOGEN,URINE NORMAL (NORMAL)
[2016-11-07 04:35] LABS: AMORPHOUS SEDIMENT,UR 1+ /HPF (NEGATIVE); APPEARANCE,URINE SLIGHTLY HAZY (CLEAR); BACTERIA,URINE NEGATIVE /HPF (NEGATIVE); COLOR,URINE YELLOW (YELLOW); RBC,URINE 0-3 /HPF (NEGATIVE); SQUAMOUS EPITHELIAL CELL,UR RARE /HPF (NEGATIVE)
[2016-11-07] MEDS ORDERED: SNACK - Diabetic Appropriate PO SCH (20:00)
== END 2016-11-07 04:20 | disposition hospice, inpatient (51) ==
LOC: ER 02:20
PROC: 0T9B70Z Drainage of Bladder with Drainage Device, Via Natural or Artificial Opening (ICD-10-PCS; principal; 2016-11-07)
DX: N18.9 Chronic kidney disease, unspecified (principal); I50.9 Heart failure, unspecified; I51.7 Cardiomegaly; R06.02 Shortness of breath; J90 Pleural effusion, not elsewhere classified
CPT/HCPCS: 36415; 36600; 51702; 71010; 80053; 81001; 82550; 82553; 82803; 83735; 83880; 84484; 85025; 93005; 94640; 96365; 96374; 96375; 99284; 99285; A4222; J1815; J1940; J2930; J3490; J7620

== ENCOUNTER → 2017-01-20 | Outpatient (CLI) | payer OTHER ==
--- NOTE | 2017-01-26 16:06 | MG ---
HISTORY: SCREENING Comparison: Multiple priors dating back to July 22, 2011 FINDINGS: Bilateral CC and MLO projections of the right and left breast were obtained. Scattered fibroglandula r tissue is seen to be present without significant interval change. No suspicious architectural dist ortion, mass or clustered microcalcifications can be observed to suggest malignancy. No skin thicken ing or nipple retraction is appreciated. No pathological lymphadenopathy can be identified. Benign- appearing calcifications are noted within the right and left breast. IMPRESSION: NO RADIOGRAPHIC EVIDENCE OF MALIGNANCY. ACR CATEGORY 2 - benign findings. FOLLOW-UP EXAM 1 YEAR. Diagnostic CAD was utilized and reviewed. * 0 (ZERO) - ASSESSMENT INCOMPLETE; ADDITIONAL IMAGING IS NEEDED. * 1/1 (ONE) - NEGATIVE. * 2/II (TWO) - BENIGN FINDINGS. * 3/III (THREE) - PROBABLY BENIGN FINDING; SHORT INTERVAL FOLLOW-UP SUGGESTED. * 4/IV (FOUR) - SUSPICIOUS ABNORMALITY; BIOPSY SHOULD BE CONSIDERED. * 5/V - HIGHLY SUSPICIOUS OF MALIGNANCY; BIOPSY SHOULD BE PERFORMED. A NEGATIVE X-RAY REPORT SHOULD NOT DELAY BIOPSY IF A DOMINANT OR CLINICALLY SUSPICIOUS MASS IS PRESENT; 4 TO 8 PERCENT OF CANCERS ARE NOT IDENTIFIED BY X-RAY. A NEGA TIVE REPORT MAY REINFORCE THE CLINICAL IMPRESSION. ADENOSIS AND DENSE BREASTS MAY OBSCURE AN UNDERLY ING NEOPLASM. Reported By:
== END ==
LOC: RAD 10:03
PROVIDERS: ATTEND Specialist
DX: Z12.31 Encounter for screening mammogram for malignant neoplasm of breast (principal)
CPT/HCPCS: 77067

== ENCOUNTER 2018-08-25 14:30 | Inpatient (IN) ==
[2018-08-25 15:06] LABS: BASOPHILS % (AUTO) 0.5 % (0.2-1.0); EOSINOPHILS # (AUTO) 0.3 x10^3/uL (0.0-0.2); EOSINOPHILS % (AUTO) 4.2 % (0.9-2.9); HEMATOCRIT 26.5 % (36.0-47.0); HEMOGLOBIN 8.6 g/dL (12.0-16.0); LYMPHOCYTES % (AUTO) 15.4 % (21.0-51.0); MEAN CORPUSCULAR HEMOGLOBIN 30.1 pg (27.0-34.0); MEAN CORPUSCULAR HGB CONC 32.6 g/dL (33.0-35.0); MEAN CORPUSCULAR VOLUME 92.2 fL (80.0-100.0); MEAN PLATELET VOLUME 8.6 fL (7.4-11.0); MONOCYTES # (AUTO) 0.7 x10^3/uL (0.3-0.8); MONOCYTES % (AUTO) 10.6 % (0.0-13.0); NEUTROPHILS # (AUTO) 4.3 x10^3/uL (2.2-4.8); NEUTROPHILS % (AUTO) 69.3 % (42.0-75.0); PLATELET COUNT 140 X10^3/uL (150.0-450.0); RED BLOOD COUNT 2.87 X10^6/uL (3.5-5.4); RED CELL DISTRIBUTION WIDTH 14.7 % (11.6-16.5); WHITE BLOOD COUNT 6.2 X10^3/uL (3.6-10.0)
[2018-08-25 15:24] LABS: BLOOD UREA NITROGEN 41 mg/dL (7-18); CALCIUM 8.6 mg/dL (8.5-10.1); CARBON DIOXIDE 20.3 mmol/L (21-32); CHLORIDE 106 mmol/L (98-107); COR NA(FOR HYPERGLY) 141 mmol/L (136-145); CREATININE 6.24 mg/dL (0.55-1.02); SODIUM 140 mmol/L (136-145); TROPONIN I < 0.02 ng/mL (0-1.5); eGFR NON BLACK RACES 7 (>60)
[2018-08-25 15:30] LABS: ALANINE AMINOTRANSFERASE 9 Units/L (12-78); ALBUMIN 3.3 g/dL (3.4-5.0); ALKALINE PHOSPHATASE 48 Units/L (46-116); ASPARTATE AMINO TRANSFERASE 13 Units/L (15-37); CKMB % 1.1 % (<4); COR CA(FOR HYPOALB) 9.2 mg/dL (8.5-10.1); CREATINE KINASE 156 Units/L (26-192); CREATINE KINASE MB 1.7 ng/mL (0-4.0); TOTAL PROTEIN 7.5 g/dL (6.4-8.2)
--- NOTE | 2018-08-25 16:09 | RAD ---
HISTORY: Shortness of breath, chest pain Study: Single view chest Comparison: 11/07/2016 Findings: There are bilateral pleural effusions with cardiomegaly and central vascular congestion. There are increased interstitial markings suggesting edema. No pneumothorax identified. There chronic degenerative changes of the bony thorax. IMPRESSION: 1. Findings suggestive of interstitial pulmonary edema with bilateral effusions. Reported By:
[2018-08-25 16:44] LABS: ERYTHROCYTE SEDIMENTATION RATE 46 MM/HOUR (0-20)
[2018-08-25] MEDS ORDERED: LASIX IVP ONE (17:18)
[2018-08-25] MEDS ORDERED: LASIX ONE (17:21)
[2018-08-25 18:26] LABS: BILIRUBIN,URINE NEGATIVE (NEGATIVE); BLOOD/HEMOGLOBIN,URINE 2+ (NEGATIVE); GLUCOSE, URINE 1+ (NEGATIVE); KETONES,URINE NEGATIVE (NEGATIVE); LEUKOCYTE ESTERASE ,URINE 3+ (NEGATIVE); NITRITES,URINE NEGATIVE (NEGATIVE); PROTEIN,URINE 4+ (NEGATIVE); UROBILINOGEN,URINE NORMAL (NORMAL)
[2018-08-25 18:28] LABS: APPEARANCE,URINE SLIGHTLY HAZY (CLEAR); COLOR,URINE YELLOW (YELLOW)
[2018-08-25 18:37] LABS: BACTERIA,URINE TRACE /HPF (NEGATIVE); RBC,URINE 0-2 /HPF (NONE SEEN); SQUAMOUS EPITHELIAL CELL,UR RARE /HPF (NEGATIVE)
[2018-08-25 19:54] VITALS: BMI 33.1
[2018-08-25] MEDS: XARELTO PO SCH (21:44)
--- NOTE | 2018-08-26 01:50 | DR.SOBA ---
HPI Time Seen Time Seen by Provider: 08/25/18 15:36 Primary Care Physician Primary Care Physician: AMBER ALBARRAN Complaints Chief Complaint Doctors Comments: 68 y/o female sent over by the [employer]SPORTATION MANAGER for evaluation of low O2 sat noted in the office today. The pt. has had SOB x 3 days. She has some chest discomfort that she described as a feeling of her chest closing in. She has no cough. She denies palpitations. Chief Complaint:: PT. C/O SHORTNESS OF BREATH, ONSET OF THURSDAY. PT. SEEN PCP TODAY AND WAS SENT HERE FOR EVALUATION. AMBER ALBARRAN, STATES PT'S O2 SAT WAS 87% ON ROOM AIR. PT. C/O CHEST DISCOMFORT. PT. STATES "IT FEELS LIKE IT IS CLOSING IN." Reviewed Nurses Notes Reviewed: Yes Source History Provided: Patient Mode of Arrival Mode of Arrival: Ambulatory Timing Onset of Chief Complaint: 08/23/18 Context Onset:: At Rest PE Risk Factors:: None History of:: CHF Currently on:: Neither Prehospital Care:: None Modifying Factors Worsens:: Exertion Improves:: Rest Associated Signs and Symptoms Associated Signs and Symptoms: None If Cough Cough: None PMH PMH Past Medical History: Yes Past Medical History: Diabetes, Hypertension and Renal Disease Past Surgical History: Yes Surgical History: Cholecystectomy Family History History of Family Medical Conditions: Yes Family Medical History: Diabetes Mellitus and Hypertension Social History Does patient currently use any type of tobacco product: No Have you used tobacco products in the last 12 months: No Type of Tobacco Use: None Does any household member use tobacco: No Alcohol Use: None Do you use any recreational Drugs:: No Lives With: Alone Lives Where: Home infectious screening In the last 2 months have you had wt loss of >10#?: NO Have you had fever, night sweats or hemotysis?: No Have you traveled outside the country in the last 6 months?: No Isolation: Standard ROS Review of Systems Constitutional: No Symptoms Reported Eyes: No Symptoms Reported ENTM: No Symptoms Reported Respiratoy: Short of Breath Cardiovascular: No Symptoms Reported Gastrointestinal/Abdominal: No Symptoms Reported Genitourinary: No Symptoms Reported Neurological: No Symptoms Reported Musculoskeletal: No Symptoms Reported Integumentary: No Symptoms Reported Hematologic/Lymphatic: No Symptoms Reported Endocrine: No Symptoms Reported Psychiatric: No Symptoms Reported PE Vital Signs Vitals: Temperature 99.1 F Pulse Rate [Left Brachial] 73 Pulse Rate [Apical] 70 Pulse Rate 82 Respiratory Rate 22 Blood Pressure [Left Arm] 115/57 Blood Pressure [Right Arm] 166/71 Blood Pressure 170/72 O2 Sat by Pulse Oximetry 96 General Limitations: No Limitations General Appearance: Alert and In No Apparent Distress Head Head Exam: Normal Inspection, Atraumatic and Normocephalic Eyes Eye exam: Normal Appearance and EOMI ENT ENT Exam: Normal Oropharynx and Mucous Membranes Moist Neck Neck Exam: Normal Inspection, Full ROM and Trachea Midline Chest Chest Inspection: Normal Inspection Respiratory Respiratory Exam: Bilateral: Rhonchi Cardiovascular Cardiovascular Exam: Regular Rate, Normal Rhythm, +S1 and +S2 Abdominal Exam Abdominal Exam: Normal Inspection, Normal Bowel Sounds and Soft Extremities Extremities Exam: Normal Inspection and Full ROM; negative Tenderness, Normal Capillary Refill, Edema, Joint Swelling and Calf Tenderness Back Back Exam: Normal Inspection Neurologic Neurological Exam: Alert and Oriented X3 Psychiatric Psychiatric Exam: Normal Affect and Normal Mood Skin Skin Exam: Warm, Dry and Normal Color COURSE Reevaluation 1st: Improved 2nd: Unchanged Education/Counseling Education/Counseling: Patient, Family, Education and Counseling Educated On: Treatment, Diagnosis, Prognosis and Needs for Follow Up ROR Labs Reviewed Laboratory Results Reviewed?: Yes Result Diagrams: 08/25/18 14:48 08/25/18 14:48 Laboratory: WBC 6.2 X10^3/uL (3.6-10.0) 08/25/18 14:48 RBC 2.87 X10^6/uL (3.5-5.4) L 08/25/18 14:48 Hgb 8.6 g/dL (12.0-16.0) L 08/25/18 14:48 Hct 26.5 % (36.0-47.0) L 08/25/18 14:48 MCV 92.2 fL (80.0-100.0) 08/25/18 14:48 MCH 30.1 pg (27.0-34.0) 08/25/18 14:48 MCHC 32.6 g/dL (33.0-35.0) L 08/25/18 14:48 RDW 14.7 % (11.6-16.5) 08/25/18 14:48 Plt Count 140 X10^3/uL (150.0-450.0) L 08/25/18 14:48 MPV 8.6 fL (7.4-11.0) 08/25/18 14:48 Neut % (Auto) 69.3 % (42.0-75.0) 08/25/18 14:48 Lymph % (Auto) 15.4 % (21.0-51.0) L 08/25/18 14:48 Real % (Auto) 10.6 % (0.0-13.0) 08/25/18 14:48 Eos % (Auto) 4.2 % (0.9-2.9) H 08/25/18 14:48 Baso % (Auto) 0.5 % (0.2-1.0) 08/25/18 14:48 Neut # (Auto) 4.3 x10^3/uL (2.2-4.8) 08/25/18 14:48 Lymph # (Auto) 1.0 X10^3/uL (1.3-2.9) L 08/25/18 14:48 Real # (Auto) 0.7 x10^3/uL (0.3-0.8) 08/25/18 14:48 Eos # (Auto) 0.3 x10^3/uL (0.0-0.2) H 08/25/18 14:48 Baso # (Auto) 0.0 X10^3/uL (0.0-0.1) 08/25/18 14:48 Absolute Nucleated RBC 0.0 /100WBC 08/25/18 14:48 ESR 46 MM/HOUR (0-20) H 08/25/18 15:58 INR Target Range - 08/25/18 14:48 INR 1.16 (0.8-1.3) 08/25/18 14:48 APTT 32.7 SECONDS (22.9-36.5) 08/25/18 14:48 PTT Comment - 08/25/18 14:48 D-Dimer 1680 ng/mL (0-400) H* 08/25/18 14:48 Sodium 140 mmol/L (136-145) 08/25/18 14:48 Corrected Sodium 141 mmol/L (136-145) 08/25/18 14:48 Potassium 5.0 mmol/L (3.5-5.1) 08/25/18 14:48 Chloride 106 mmol/L (98-107) 08/25/18 14:48 Carbon Dioxide 20.3 mmol/L (21-32) L 08/25/18 14:48 BUN 41 mg/dL (7-18) H 08/25/18 14:48 Creatinine 6.24 mg/dL (0.55-1.02) H 08/25/18 14:48 Est GFR (MDRD) Af Amer 9 (>60) L 08/25/18 14:48 Est GFR (MDRD) Non-Af 7 (>60) L 08/25/18 14:48 Glucose 161 mg/dL (65-99) H 08/25/18 14:48 POC Glucose (mg/dL) 162 mg/dL (65-99) H 08/25/18 21:41 Calcium 8.6 mg/dL (8.5-10.1) 08/25/18 14:48 Corrected Calcium 9.2 mg/dL (8.5-10.1) 08/25/18 14:48 Total Bilirubin 0.30 mg/dL (0.2-1.0) 08/25/18 14:48 AST 13 Units/L (15-37) L 08/25/18 14:48 ALT 9 Units/L (12-78) L 08/25/18 14:48 Alkaline Phosphatase 48 Units/L (46-116) 08/25/18 14:48 Creatine Kinase 156 Units/L (26-192) 08/25/18 14:48 CK-MB (CK-2) 1.7 ng/mL (0-4.0) 08/25/18 14:48 CK/CKMB % Calc 1.1 % (<4) 08/25/18 14:48 Troponin I < 0.02 ng/mL (0-1.5) 08/25/18 14:48 C-Reactive Protein 5.40 mg/L (0-3.0) H 08/25/18 15:58 Total Protein 7.5 g/dL (6.4-8.2) 08/25/18 14:48 Albumin 3.3 g/dL (3.4-5.0) L 08/25/18 14:48 Globulin 4.2 g/dL (2.5-4.5) 08/25/18 14:48 Albumin/Globulin Ratio 0.8 Ratio (1.1-2.1) L 08/25/18 14:48 Specimen Type Clean catch urine 08/25/18 15:45 Urine Color Yellow (YELLOW) 08/25/18 15:45 Urine Appearance Slightly hazy (CLEAR) 08/25/18 15:45 Urine pH 7.0 (5.0 - 8.0) 08/25/18 15:45 Ur Specific [place] 1.010 (1.000-1.030) 08/25/18 15:45 Urine Protein 4+ (NEGATIVE) 08/25/18 15:45 Urine Glucose (UA) 1+ (NEGATIVE) 08/25/18 15:45 Urine Ketones Negative (NEGATIVE) 08/25/18 15:45 Urine Occult Blood 2+ (NEGATIVE) 08/25/18 15:45 Urine Nitrite Negative (NEGATIVE) 08/25/18 15:45 Urine Bilirubin Negative (NEGATIVE) 08/25/18 15:45 Urine Urobilinogen Normal (NORMAL) 08/25/18 15:45 Ur Leukocyte Esterase 3+ (NEGATIVE) 08/25/18 15:45 Urine RBC 0-2 /HPF (NONE SEEN) 08/25/18 15:45 Urine WBC 10-20 /HPF (NONE SEEN) 08/25/18 15:45 Ur Squamous Epith Cells Rare /HPF (NEGATIVE) 08/25/18 15:45 Urine Bacteria Trace /HPF (NEGATIVE) 08/25/18 15:45 Ur Culture Indicated? Yes/culture set up 08/25/18 15:45 Diagnosis Discharge Problem: Acute dyspnea, D-dimer, elevated, Benign essential HTN CHF (congestive heart failure) Qualifiers: Heart failure type: unspecified Heart failure chronicity: chronic Qualified Code(s): I50.9 - Heart failure, unspecified Diabetes Qualifiers: Diabetes mellitus type: type 2 Diabetes mellitus termite exterminator helper insulin use: without termite exterminator helper use Diabetes mellitus complication status: with kidney complications Diabetes mellitus complication detail: with chronic kidney disease Chronic kidney disease stage: stage 5, not on chronic dialysis Qualified Code(s): E11.22 - Type 2 diabetes mellitus with diabetic chronic kidney disease
[2018-08-26 05:20] LABS: BASOPHILS % (AUTO) 0.8 % (0.2-1.0); EOSINOPHILS # (AUTO) 0.2 x10^3/uL (0.0-0.2); EOSINOPHILS % (AUTO) 4.4 % (0.9-2.9); HEMOGLOBIN 8.5 g/dL (12.0-16.0); LYMPHOCYTES # (AUTO) 1.1 X10^3/uL (1.3-2.9); LYMPHOCYTES % (AUTO) 19.1 % (21.0-51.0); MEAN CORPUSCULAR HEMOGLOBIN 30.3 pg (27.0-34.0); MEAN CORPUSCULAR HGB CONC 32.7 g/dL (33.0-35.0); MEAN CORPUSCULAR VOLUME 92.6 fL (80.0-100.0); MEAN PLATELET VOLUME 9.4 fL (7.4-11.0); MONOCYTES # (AUTO) 0.6 x10^3/uL (0.3-0.8); MONOCYTES % (AUTO) 11.6 % (0.0-13.0); NEUTROPHILS # (AUTO) 3.6 x10^3/uL (2.2-4.8); NEUTROPHILS % (AUTO) 64.1 % (42.0-75.0); PLATELET COUNT 126 X10^3/uL (150.0-450.0); RED CELL DISTRIBUTION WIDTH 14.4 % (11.6-16.5); WHITE BLOOD COUNT 5.6 X10^3/uL (3.6-10.0)
[2018-08-26 05:36] LABS: ALANINE AMINOTRANSFERASE 6 Units/L (12-78); ALKALINE PHOSPHATASE 47 Units/L (46-116); ASPARTATE AMINO TRANSFERASE 12 Units/L (15-37); BLOOD UREA NITROGEN 42 mg/dL (7-18); CALCIUM 8.5 mg/dL (8.5-10.1); CHLORIDE 108 mmol/L (98-107); COR CA(FOR HYPOALB) 9.3 mg/dL (8.5-10.1); CREATININE 6.32 mg/dL (0.55-1.02); SODIUM 140 mmol/L (136-145); eGFR NON BLACK RACES 7 (>60)
--- NOTE | 2018-08-26 06:36 | RAD ---
HISTORY: Shortness of breath Study: Chest AP portable Comparison: 08/25/2018 Findings: The heart is enlarged. The nolan are prominent and indistinct and the interstitium is prominent all suggestive of interstitial pulmonary edema not significantly changed from the prior examination. There is a right pleural effusion also unchanged. A small left pleural effusion may be present. No alveolar edema or alveolar infiltrates are identified. The bony thorax is unremarkable. IMPRESSION: Continued cardiomegaly with congestive heart failure in the form of interstitial edema No change right pleural effusion Reported By:
[2018-08-26] MEDS ORDERED: VITAMIN D (1.25MG) PO SCH (09:30)
[2018-08-26] MEDS ORDERED: VERAPAMIL 360 MG PO SCH (09:30)
[2018-08-26 09:46] LABS: ABG BASE EXCESS -2.4 mmol/L (-2.0-2.0); ABG HCO3 23.2 mmol/L (22-26)
[2018-08-26 09:47] LABS: ABG ALLEN TEST POS
[2018-08-26] MEDS ORDERED: LOPRESSOR TAB 25 MG PO SCH (10:00)
[2018-08-26] MEDS ORDERED: ROCALTROL PO SCH (10:00)
[2018-08-26] MEDS ORDERED: NEURONTIN CAP 400 MG PO SCH (10:00)
[2018-08-26] MEDS ORDERED: APRESOLINE TAB 25 MG PO SCH (10:00)
--- NOTE | 2018-08-26 10:15 | DR.H&P ---
H&P - History & Physical for Day of: H&P Date: 08/25/18 - Chief Complaint Chief Complaint: SHORTNESS OF BREATH - History of Present Illness History of Present Illness: IS A 68 YEAR OLD PATIENT OF OURS WHO PRESENTED TO THE ER WITH COMPLAINTS OF SHORTNESS OF BREATH X 3 DAYS. SHE REPORTS BEING SEEN IN THE OFFICE TODAY, WHERE HER OXYGEN SATURATIONS WERE NOTED TO BE 87% ON ROOM AIR. SHE ALSO COMPLAINS OF CHEST DISCOMFORT. ON EXAMINATION, SHE IS NOTED WITH SCATTERED RHONCHI. ON ARRIVAL, VITALS WERE 97.5-82-22-89%-170/72. LABS WERE OBTAINED. ABNORMAL LAB VALUES INCLUDE THE FOLLOWING: RBC 2.87, HGB 8.6, HCT 26.5, PLT COUNT 140, D-DIMER 1680, CARBON DIOXIDE 20.3, BUN 41, CREATININE 6.24, GLUCOSE 161, AST 13, ALT 9, CRP 5.40, ALBUMIN 3.3. URINALYSIS REVEALED WBC 10-20, RBC 0-2, LEUKOCYTES 3+, BACTERIA TRACE. AN MADAI AND LUPUS PANEL WERE OBTAINED AND ARE PENDING. URINE CULTURE PENDING. A CHEST XRAY WAS OBTAINED AND REVLEAED: Findings suggestive of interstitial pulmonary edema with bilateral effusions. EKG REVEALED: SINUS RHYTHM WITH HR 77. SHE REPORTS BEING UNDER THE CARE OF A LEAFLET DISTRIBUTOR. SHE RECENTLY HAD A SHUNT PLACED AND IS GETTING READY TO START DIALYSIS. SHE RECEIVED LASIX 20MG IV X 1 DOSE IN THE ER. SHE WAS ADMITTED FOR FURTHER EVALUATION AND TREATMENT OF CHF, SHORTNESS OF BREATH, RULE OUT PE, AND RENAL FAILURE. WE PLAN TO FOLLOW UP WITH AM LABS AND CONTINUE TO MONITOR. - Past Medical History Past Medical History: Hypertension, Diabetes, Renal Disease - Past Surgical History Surgical History: Cholecystectomy - Family History Family Medical History: Diabetes Mellitus, Hypertension - Social History Does patient currently use any type of tobacco product: No Have you used tobacco products in the last 12 months: No Type of Tobacco Use: None Does any household member use tobacco: No Alcohol Use: None Drug Use: None - Medications Home Medications: iodine Allergy (Verified 08/25/18 14:38) CONTINUE taking the following medications amlodipine 10 mg PO DAILY 08/25/18 [History] calcitriol 0.5 mcg PO WEEKLY 08/25/18 [History] doxazosin 2 mg PO HS 08/25/18 [History] ergocalciferol (vitamin D2) [Vitamin D2] 50,000 cap PO .[id number] 08/25/18 [History] furosemide [Lasix] 40 mg PO DAILY 08/25/18 [History] gabapentin [Neurontin] 400 mg PO BID 08/25/18 [History] hydralazine 50 mg PO BID 08/25/18 [History] metoprolol tartrate 25 mg PO BID 08/25/18 [History] minoxidil 5 mg PO DAILY 08/25/18 [History] zolpidem 0 mg PO HS 08/25/18 [History] - Review of Systems Constitutional: Weakness Eyes: No Symptoms Reported ENT: No Symptoms Reported Respiratory: See HPI, Shortness of Breath, SOB with Excertion Cardiovascular: No Symptoms Reported Gastrointestinal: No Symptoms Reported Genitourinary: No Symptoms Reported Musculoskeletal: No Symptoms Reported Skin: No Symptoms Reported Neurological: Weakness - Physical Exam Vital Signs: Temperature 98.5 F Pulse Rate [Left Brachial] 72 Pulse Rate [Apical] 70 Pulse Rate 82 Respiratory Rate 20 Blood Pressure [Left Arm] 138/63 Blood Pressure [Right Arm] 166/71 Blood Pressure 170/72 O2 Sat by Pulse Oximetry 94 Oriented: Normal Eyes: Normal Ear: Normal Nose: Normal Throat: Normal Respiratory: Diminished Throughout, Wheezes Throughout Cardiovascular: Normal. negative: S3, S4, Murmur : Normal Auscultation: Bowel Sounds: Normal Palpation: Normal Tenderness: Normal Skin: Normal Musculoskeletal: Normal Psychiatric: Normal Mood Description: Calm Affect: Normal Speech Pattern: Clear - Assessment/Plan (1) CHF (congestive heart failure) Qualifiers: Heart failure type: unspecified Heart failure chronicity: chronic Qualified Code(s): I50.9 - Heart failure, unspecified Status: Acute Plan: ADMIT, IV LASIX, RESPIRATORY TREATMENTS, SUPPLEMENTAL OXYGEN. (2) Acute dyspnea Status: Acute (3) Renal failure (ARF), acute on chronic Qualifiers: Acute renal failure type: unspecified Chronic kidney disease stage: unspecified stage Qualified Code(s): N17.9 - Acute kidney failure, unspecified; N18.9 - Chronic kidney disease, unspecified Status: Acute - Allergies Allergies/Adverse Reactions: Allergies Allergy/AdvReac Type Severity Reaction Status Date / Time iodine Allergy Verified 08/25/18 14:38
[2018-08-26] MEDS ORDERED: LOPRESSOR TAB 50 MG ONE (10:39)
[2018-08-26] MEDS: XARELTO PO SCH ×2 (10:47→20:03)
[2018-08-26] MEDS: ZANTAC PO SCH (10:47)
[2018-08-26] MEDS: PriLOSEC PO SCH (10:47)
[2018-08-26] MEDS: MINOXIDIL PO SCH (10:48)
[2018-08-26] MEDS ORDERED: LOPRESSOR TAB 25 MG ONE (10:48)
[2018-08-26] MEDS: LASIX IVP SCH ×2 (10:50→20:03)
[2018-08-26] MEDS: XOPENEX 1.25 MG/3 ML NEBULE NEB SCH ×3 (16:05→21:40)
[2018-08-26] MEDS: LOPRESSOR TAB 25 MG PO SCH (20:02)
[2018-08-26] MEDS: CARDURA PO SCH (20:02)
[2018-08-26] MEDS: AMBIEN PO SCH (20:02)
[2018-08-26] MEDS: ZOCOR TAB 20 MG PO SCH (20:02)
[2018-08-26] MEDS: SNACK - Diabetic Appropriate PO SCH (21:15)
[2018-08-27] MEDS: XOPENEX 1.25 MG/3 ML NEBULE NEB SCH ×4 (01:16→16:00)
[2018-08-27 06:23] LABS: BASOPHILS % (AUTO) 0.6 % (0.2-1.0); EOSINOPHILS # (AUTO) 0.2 x10^3/uL (0.0-0.2); EOSINOPHILS % (AUTO) 4.3 % (0.9-2.9); HEMATOCRIT 24.9 % (36.0-47.0); HEMOGLOBIN 8.2 g/dL (12.0-16.0); LYMPHOCYTES # (AUTO) 1.2 X10^3/uL (1.3-2.9); LYMPHOCYTES % (AUTO) 22.6 % (21.0-51.0); MEAN CORPUSCULAR HEMOGLOBIN 30.4 pg (27.0-34.0); MEAN CORPUSCULAR HGB CONC 32.9 g/dL (33.0-35.0); MEAN CORPUSCULAR VOLUME 92.4 fL (80.0-100.0); MEAN PLATELET VOLUME 9.1 fL (7.4-11.0); MONOCYTES # (AUTO) 0.7 x10^3/uL (0.3-0.8); MONOCYTES % (AUTO) 12.3 % (0.0-13.0); NEUTROPHILS # (AUTO) 3.3 x10^3/uL (2.2-4.8); NEUTROPHILS % (AUTO) 60.2 % (42.0-75.0); PLATELET COUNT 126 X10^3/uL (150.0-450.0); RED CELL DISTRIBUTION WIDTH 14.6 % (11.6-16.5); WHITE BLOOD COUNT 5.4 X10^3/uL (3.6-10.0)
[2018-08-27 06:53] LABS: ALBUMIN 3.1 g/dL (3.4-5.0); CALCIUM 8.4 mg/dL (8.5-10.1); CARBON DIOXIDE 21.8 mmol/L (21-32); COR CA(FOR HYPOALB) 9.1 mg/dL (8.5-10.1); CREATININE 6.58 mg/dL (0.55-1.02); TOTAL PROTEIN 7.1 g/dL (6.4-8.2)
[2018-08-27] MEDS: NORVASC TAB 10 MG PO SCH (08:38)
[2018-08-27] MEDS: LOPRESSOR TAB 25 MG PO SCH ×2 (08:39→20:37)
[2018-08-27] MEDS: PriLOSEC PO SCH (08:39)
[2018-08-27] MEDS: MINOXIDIL PO SCH (08:39)
[2018-08-27] MEDS: XARELTO PO SCH ×2 (08:42→20:38)
[2018-08-27] MEDS: LASIX IVP SCH ×2 (08:43→20:37)
[2018-08-27] MEDS: ZANTAC PO SCH (08:43)
[2018-08-27] MEDS ORDERED: PHARMACY CONSULT - DOSE _____ XX SCH (11:00)
[2018-08-27] MEDS: CIPRO IV 400 MG PREMIX* 400 MG/200 ML IV.SOLN. IV SCH (11:51)
[2018-08-27] MEDS ORDERED: NS 250 ML IV 250 ML ONE (12:20)
[2018-08-27] MEDS: HumuLIN R SUBCUT PRN (16:30)
[2018-08-27] MEDS: AMBIEN PO SCH (20:37)
[2018-08-27] MEDS: SNACK - Diabetic Appropriate PO SCH (20:37)
[2018-08-27] MEDS: CARDURA PO SCH (20:37)
[2018-08-27] MEDS: ZOCOR TAB 20 MG PO SCH (20:38)
--- NOTE | 2018-08-27 23:04 | PCM.PROG ---
Progress Note - Progress Note for Day of Date of Exam: 08/26/18 - Subjective Subjective: WAS ADMITTED FOR CHF, DYSPNEA, AND RENAL FAILURE. TODAY, SHE IS ALERT AND ORIENTED, LYING IN BED ON MORNING ROUNDS. SHE CONTINUES WITH COMPLAINTS OF SHORTNESS OF BREATH AND COUGH. ON EXAMINATION, HEART IS REGULAR IN RATE AND RHYTHM. BILATERAL LUNGS ARE NOTED WITH DIMINISHED LUNG SOUNDS THROUGHOUT. ABDOMEN IS ROUND, SOFT, AND NON-TENDER WITH NORMAL BOWEL SOUNDS NOTED IN ALL QUADRANTS. SHE IS NOTED WITH 1+ PITTING EDEMA TO HER LOWER EXTREMITIES. HER VITALS THIS MORNING ARE 97.6-73-20-93%-150/67. LABS WERE OBTAINED. ABNORMAL LAB VALUES INCLUDE THE FOLLOWING: RBC 2.80, HGB 8.5, HCT 26.0, PLT COUNT 126, CHLORIDE 108, BUN 42, CREATININE 6.32, GLUCOSE 103, AST 12, ALT 6, ALBUMIN 3.0. URINE AND SPUTUM CULTURE PENDING. A CHEST XRAY WAS OBTAINED TODAY AND REVEALED: Continued cardiomegaly with congestive heart failure in the form of interstitial edema. No change right pleural effusion. TODAY, WE WILL CONTINUE LASIX 20MG IV BID. WE WILL ORDER FOR HER TO WEAR THE C-PAP, OBTAIN AN A BG, AND AN ECHO. OTHERWISE, WE WILL FOLLOW UP WITH AM LABS AND CONTINUE TO MONITOR. - Past Medical Family Social History Past Med/Fam/Surg Hx: No changes since H&P Allergies: Allergies iodine Allergy (Verified 08/25/18 14:38) - Review of Systems ROS: No change since H&P - Vital Signs and I&O's Vital Signs: Temperature 97.7 F Pulse Rate [Left Brachial] 72 Pulse Rate [Apical] 70 Pulse Rate 91 Respiratory Rate 22 Blood Pressure [Left Arm] 140/65 Blood Pressure [Right Arm] 166/71 Blood Pressure 170/72 O2 Sat by Pulse Oximetry 97 Intake and Output: Intake & Output 08/25/18 08/26/18 08/27/18 08/28/18 11:59 11:59 11:59 11:59 Intake Total 260 / 260 820 / 820 391 / 391 Output Total 200 / 200 Balance 60 / 60 820 / 820 391 / 391 - Physical Exam Oriented: Normal Eyes: Normal Ear: Normal Nose: Normal Throat: Normal Cardiovascular: Normal. negative: S3, S4, Murmur : Normal Auscultation: Bowel Sounds: Normal Tenderness: Normal Skin: Normal Musculoskeletal: Normal Psychiatric: Normal Mood Description: Calm Affect: Normal Speech Pattern: Clear, Appropriate - Laboratory and Diagnostics Result Diagrams: 08/27/18 05:40 08/27/18 05:40 Labs: 08/26/18 16:05 Sputum - Expectorated Sputum Sputum Culture - Preliminary 08/26/18 16:05 Sputum - Expectorated Sputum - Final 08/25/18 15:45 Urine,Clean Catch Urine Culture - Final Enterococcus Faecalis Laboratory WBC 5.4 X10^3/uL (3.6-10.0) 08/27/18 05:40 RBC 2.70 X10^6/uL (3.5-5.4) L 08/27/18 05:40 Hgb 8.2 g/dL (12.0-16.0) L 08/27/18 05:40 Hct 24.9 % (36.0-47.0) L 08/27/18 05:40 MCV 92.4 fL (80.0-100.0) 08/27/18 05:40 MCH 30.4 pg (27.0-34.0) 08/27/18 05:40 MCHC 32.9 g/dL (33.0-35.0) L 08/27/18 05:40 RDW 14.6 % (11.6-16.5) 08/27/18 05:40 Plt Count 126 X10^3/uL (150.0-450.0) L 08/27/18 05:40 MPV 9.1 fL (7.4-11.0) 08/27/18 05:40 Neut % (Auto) 60.2 % (42.0-75.0) 08/27/18 05:40 Lymph % (Auto) 22.6 % (21.0-51.0) 08/27/18 05:40 [place] % (Auto) 12.3 % (0.0-13.0) 08/27/18 05:40 Eos % (Auto) 4.3 % (0.9-2.9) H 08/27/18 05:40 Baso % (Auto) 0.6 % (0.2-1.0) 08/27/18 05:40 Neut # (Auto) 3.3 x10^3/uL (2.2-4.8) 08/27/18 05:40 Lymph # (Auto) 1.2 X10^3/uL (1.3-2.9) L 08/27/18 05:40 [place] # (Auto) 0.7 x10^3/uL (0.3-0.8) 08/27/18 05:40 Eos # (Auto) 0.2 x10^3/uL (0.0-0.2) 08/27/18 05:40 Baso # (Auto) 0.0 X10^3/uL (0.0-0.1) 08/27/18 05:40 Absolute Nucleated RBC 0.0 /100WBC 08/27/18 05:40 ESR 46 MM/HOUR (0-20) H 08/25/18 15:58 INR Target Range - 08/25/18 14:48 INR 1.16 (0.8-1.3) 08/25/18 14:48 APTT 32.7 SECONDS (22.9-36.5) 08/25/18 14:48 PTT Comment - 08/25/18 14:48 D-Dimer 1680 ng/mL (0-400) H* 08/25/18 14:48 Sample Site Lr 08/26/18 09:37 ABG pH 7.350 (7.35-7.45) 08/26/18 09:37 ABG pCO2 42.0 mmHg (35.0-45.0) 08/26/18 09:37 ABG pO2 53.0 mmHg (80.0-100.0) L 08/26/18 09:37 ABG HCO3 23.2 mmol/L (22-26) 08/26/18 09:37 ABG O2 Saturation 85.0 % (90-100) L 08/26/18 09:37 ABG Base Excess -2.4 mmol/L (-2.0-2.0) L 08/26/18 09:37 Carl Test Pos 08/26/18 09:37 A-a Gradient 44.0 mmHg 08/26/18 09:37 FiO2 21.0 08/26/18 09:37 Blood Gas Comments Pt eric well. cdn 08/26/18 09:37 Sodium 139 mmol/L (136-145) 08/27/18 05:40 Corrected Sodium 140 mmol/L (136-145) 08/27/18 05:40 Potassium 5.5 mmol/L (3.5-5.1) H 08/27/18 05:40 Chloride 106 mmol/L (98-107) 08/27/18 05:40 Carbon Dioxide 21.8 mmol/L (21-32) 08/27/18 05:40 BUN 45 mg/dL (7-18) H 08/27/18 05:40 Creatinine 6.58 mg/dL (0.55-1.02) H 08/27/18 05:40 Est GFR (MDRD) Af Amer 8 (>60) L 08/27/18 05:40 Est GFR (MDRD) Non-Af 7 (>60) L 08/27/18 05:40 Glucose 133 mg/dL (65-99) H 08/27/18 05:40 POC Glucose (mg/dL) 155 mg/dL (65-99) H 08/27/18 20:09 Calcium 8.4 mg/dL (8.5-10.1) L 08/27/18 05:40 Corrected Calcium 9.1 mg/dL (8.5-10.1) 08/27/18 05:40 Total Bilirubin 0.30 mg/dL (0.2-1.0) 08/27/18 05:40 AST 14 Units/L (15-37) L 08/27/18 05:40 ALT 9 Units/L (12-78) L 08/27/18 05:40 Alkaline Phosphatase 42 Units/L (46-116) L 08/27/18 05:40 Creatine Kinase 156 Units/L (26-192) 08/25/18 14:48 CK-MB (CK-2) 1.7 ng/mL (0-4.0) 08/25/18 14:48 CK/CKMB % Calc 1.1 % (<4) 08/25/18 14:48 Troponin I < 0.02 ng/mL (0-1.5) 08/25/18 14:48 C-Reactive Protein 5.40 mg/L (0-3.0) H 08/25/18 15:58 Total Protein 7.1 g/dL (6.4-8.2) 08/27/18 05:40 Albumin 3.1 g/dL (3.4-5.0) L 08/27/18 05:40 Globulin 4.0 g/dL (2.5-4.5) 08/27/18 05:40 Albumin/Globulin Ratio 0.8 Ratio (1.1-2.1) L 08/27/18 05:40 Specimen Type Clean catch urine 08/25/18 15:45 Urine Color Yellow (YELLOW) 08/25/18 15:45 Urine Appearance Slightly hazy (CLEAR) 08/25/18 15:45 Urine pH 7.0 (5.0 - 8.0) 08/25/18 15:45 Ur Specific [place] 1.010 (1.000-1.030) 08/25/18 15:45 Urine Protein 4+ (NEGATIVE) 08/25/18 15:45 Urine Glucose (UA) 1+ (NEGATIVE) 08/25/18 15:45 Urine Ketones Negative (NEGATIVE) 08/25/18 15:45 Urine Occult Blood 2+ (NEGATIVE) 08/25/18 15:45 Urine Nitrite Negative (NEGATIVE) 08/25/18 15:45 Urine Bilirubin Negative (NEGATIVE) 08/25/18 15:45 Urine Urobilinogen Normal (NORMAL) 08/25/18 15:45 Ur Leukocyte Esterase 3+ (NEGATIVE) 08/25/18 15:45 Urine RBC 0-2 /HPF (NONE SEEN) 08/25/18 15:45 Urine WBC 10-20 /HPF (NONE SEEN) 08/25/18 15:45 Ur Squamous Epith Cells Rare /HPF (NEGATIVE) 08/25/18 15:45 Urine Bacteria Trace /HPF (NEGATIVE) 08/25/18 15:45 Ur Culture Indicated? Yes/culture set up 08/25/18 15:45 - Plan (1) CHF (congestive heart failure) Status: Acute Qualifiers: Heart failure type: unspecified Heart failure chronicity: chronic Qualified Code(s): I50.9 - Heart failure, unspecified Plan: OBTAIN ECHO, OBTAIN ABG, C-PAP, IV LASIX, RESPIRATORY TREATMENTS, SUPPLEMENTAL OXYGEN. (2) Acute dyspnea Status: Acute (3) Renal failure (ARF), acute on chronic Status: Acute Qualifiers: Acute renal failure type: unspecified Chronic kidney disease stage: unspecified stage Qualified Code(s): N17.9 - Acute kidney failure, unspecified; N18.9 - Chronic kidney disease, unspecified
[2018-08-28] MEDS: XOPENEX 1.25 MG/3 ML NEBULE NEB SCH ×4 (00:41→17:25)
[2018-08-28 06:18] LABS: ANTI-NUCLEAR ANTIBODY TEST None Detected (None Detected)
--- NOTE | 2018-08-28 06:18 | RAD ---
History: Shortness of breath Exam: Portable chest Comparison: 11/07/2016 Technique: Portable AP chest Findings: The heart is mildly enlarged but less prominent. The pulmonary vessels are engorged centrally but less prominent . There are hazy perihilar and bibasilar interstitial opacities which are less prominent. There small bibasilar pleural effusions which are slightly more prominent. IMPRESSION: Slight decrease in heart size with slowly resolving pulmonary edema. Small bibasilar pleural effusions which are slightly more apparent. Reported By:
[2018-08-28 06:34] LABS: BASOPHILS % (AUTO) 0.5 % (0.2-1.0); EOSINOPHILS # (AUTO) 0.2 x10^3/uL (0.0-0.2); EOSINOPHILS % (AUTO) 4.1 % (0.9-2.9); HEMATOCRIT 24.4 % (36.0-47.0); HEMOGLOBIN 8.1 g/dL (12.0-16.0); LYMPHOCYTES # (AUTO) 0.9 X10^3/uL (1.3-2.9); LYMPHOCYTES % (AUTO) 19.3 % (21.0-51.0); MEAN CORPUSCULAR HEMOGLOBIN 30.4 pg (27.0-34.0); MEAN CORPUSCULAR HGB CONC 33.1 g/dL (33.0-35.0); MEAN CORPUSCULAR VOLUME 91.9 fL (80.0-100.0); MEAN PLATELET VOLUME 8.6 fL (7.4-11.0); MONOCYTES # (AUTO) 0.6 x10^3/uL (0.3-0.8); MONOCYTES % (AUTO) 12.6 % (0.0-13.0); NEUTROPHILS % (AUTO) 63.5 % (42.0-75.0); PLATELET COUNT 115 X10^3/uL (150.0-450.0); RED BLOOD COUNT 2.65 X10^6/uL (3.5-5.4); RED CELL DISTRIBUTION WIDTH 14.3 % (11.6-16.5); WHITE BLOOD COUNT 4.8 X10^3/uL (3.6-10.0)
[2018-08-28 06:44] LABS: ALBUMIN 3.2 g/dL (3.4-5.0); CALCIUM 8.5 mg/dL (8.5-10.1); CARBON DIOXIDE 21.5 mmol/L (21-32); COR CA(FOR HYPOALB) 9.1 mg/dL (8.5-10.1); CREATININE 6.85 mg/dL (0.55-1.02)
[2018-08-28] MEDS ORDERED: NS 100 ML IV 100 ML ONE (08:16)
[2018-08-28] MEDS: ZANTAC PO SCH (08:56)
[2018-08-28] MEDS: LOPRESSOR TAB 25 MG PO SCH ×2 (08:56→20:16)
[2018-08-28] MEDS: MINOXIDIL PO SCH (08:56)
[2018-08-28] MEDS: LASIX IVP SCH ×2 (08:57→20:16)
[2018-08-28] MEDS: NORVASC TAB 10 MG PO SCH (08:57)
[2018-08-28] MEDS: PriLOSEC PO SCH (08:57)
[2018-08-28] MEDS: XARELTO PO SCH ×2 (08:57→20:16)
[2018-08-28] MEDS: CIPRO IV 400 MG PREMIX* 400 MG/200 ML IV.SOLN. IV SCH (08:58)
[2018-08-28] MEDS: MILK OF MAGNESIA PO SCH (11:15)
[2018-08-28] MEDS: HumuLIN R SUBCUT PRN (17:38)
[2018-08-28] MEDS: ZOCOR TAB 20 MG PO SCH (20:16)
[2018-08-28] MEDS: CARDURA PO SCH (20:16)
[2018-08-28] MEDS: SNACK - Diabetic Appropriate PO SCH (20:28)
[2018-08-28] MEDS: AMBIEN PO SCH (20:29)
[2018-08-29] MEDS: XOPENEX 1.25 MG/3 ML NEBULE NEB SCH ×4 (00:09→17:19)
[2018-08-29 06:04] LABS: BASOPHILS % (AUTO) 0.6 % (0.2-1.0); EOSINOPHILS # (AUTO) 0.2 x10^3/uL (0.0-0.2); EOSINOPHILS % (AUTO) 4.8 % (0.9-2.9); HEMATOCRIT 24.4 % (36.0-47.0); HEMOGLOBIN 7.9 g/dL (12.0-16.0); LYMPHOCYTES # (AUTO) 0.7 X10^3/uL (1.3-2.9); LYMPHOCYTES % (AUTO) 15.2 % (21.0-51.0); MEAN CORPUSCULAR HEMOGLOBIN 30.4 pg (27.0-34.0); MEAN CORPUSCULAR HGB CONC 32.5 g/dL (33.0-35.0); MEAN CORPUSCULAR VOLUME 93.4 fL (80.0-100.0); MEAN PLATELET VOLUME 9.3 fL (7.4-11.0); MONOCYTES # (AUTO) 0.7 x10^3/uL (0.3-0.8); MONOCYTES % (AUTO) 13.4 % (0.0-13.0); NEUTROPHILS # (AUTO) 3.2 x10^3/uL (2.2-4.8); PLATELET COUNT 115 X10^3/uL (150.0-450.0); RED BLOOD COUNT 2.61 X10^6/uL (3.5-5.4); WHITE BLOOD COUNT 4.9 X10^3/uL (3.6-10.0)
[2018-08-29 06:26] LABS: ALBUMIN 3.1 g/dL (3.4-5.0); CALCIUM 8.7 mg/dL (8.5-10.1); CARBON DIOXIDE 22.4 mmol/L (21-32); COR CA(FOR HYPOALB) 9.4 mg/dL (8.5-10.1); CREATININE 7.17 mg/dL (0.55-1.02)
[2018-08-29 06:57] LABS: PLATELET MORPHOLOGY COMMENT NORMAL (NORMAL)
[2018-08-29] MEDS ORDERED: NS 100 ML IV 100 ML ONE (08:13)
[2018-08-29] MEDS: XARELTO PO SCH ×2 (08:36→20:23)
[2018-08-29] MEDS: ZANTAC PO SCH (08:36)
[2018-08-29] MEDS: NORVASC TAB 10 MG PO SCH (08:36)
[2018-08-29] MEDS: MINOXIDIL PO SCH (08:36)
[2018-08-29] MEDS: PriLOSEC PO SCH (08:36)
[2018-08-29] MEDS: LOPRESSOR TAB 25 MG PO SCH ×2 (08:37→20:24)
[2018-08-29] MEDS: CIPRO IV 200 MG PREMIX* 200 MG/100 ML BAG IV SCH (08:38)
[2018-08-29] MEDS: MILK OF MAGNESIA PO SCH (11:31)
[2018-08-29] MEDS: CARDURA PO SCH (20:23)
[2018-08-29] MEDS: ZOCOR TAB 20 MG PO SCH (20:23)
[2018-08-29] MEDS: AMBIEN PO SCH (20:27)
[2018-08-29] MEDS: SNACK - Diabetic Appropriate PO SCH (20:29)
--- NOTE | 2018-08-29 23:53 | PCM.PROG ---
Progress Note - Progress Note for Day of Date of Exam: 08/27/18 - Subjective Subjective: WAS ADMITTED FOR CHF, DYSPNEA, AND RENAL FAILURE. TODAY, SHE IS ALERT AND ORIENTED, LYING IN BED ON MORNING ROUNDS. SHE CONTINUES WITH COMPLAINTS OF SHORTNESS OF BREATH AND COUGH. ON EXAMINATION, HEART IS REGULAR IN RATE AND RHYTHM. BILATERAL LUNGS ARE NOTED WITH DIMINISHED LUNG SOUNDS THROUGHOUT. ABDOMEN IS ROUND, SOFT, AND NON-TENDER WITH NORMAL BOWEL SOUNDS NOTED IN ALL QUADRANTS. SHE IS NOTED WITH 1+ PITTING EDEMA TO HER LOWER EXTREMITIES. HER VITALS THIS MORNING ARE 98.6-77-20-97%-137/65. LABS WERE OBTAINED. ABNORMAL LAB VALUES INCLUDE THE FOLLOWING: RBC 2.70, RBC 8.2, HCT 24.9, PLT COUNT 126, POTASSIUM 5.5, BUN 45, CREATININE 6.58, GLUCOSE 133, [id number] 8.4, AST 14, ALT 9, PHOS 42. URINE AND SPUTUM CULTURE PENDING. TODAY, WE WILL CONTINUE LASIX 20MG IV BID. WE WILL OBTIAN OXYGEN AND CPAP FOR HER AT HOME. OTHERWISE, WE WILL FOLLOW UP WITH AM LABS AND CONTINUE TO MONITOR. - Past Medical Family Social History Past Med/Fam/Surg Hx: No changes since H&P Allergies: Allergies iodine Allergy (Verified 08/25/18 14:38) - Review of Systems ROS: No change since H&P - Vital Signs and I&O's Vital Signs: Temperature 98.1 F Pulse Rate [Left Brachial] 63 Pulse Rate [Apical] 70 Pulse Rate 67 Respiratory Rate 18 Blood Pressure [Left Arm] 130/62 Blood Pressure [Right Arm] 96/46 Blood Pressure 170/72 O2 Sat by Pulse Oximetry 95 Intake and Output: Intake & Output 08/27/18 08/28/18 08/29/18 08/30/18 11:59 11:59 11:59 11:59 Intake Total 820 / 820 1161 / 1161 1082 / 1082 1270 / 1270 Balance 820 / 820 1161 / 1161 1082 / 1082 1270 / 1270 - Physical Exam Oriented: Normal Eyes: Normal Ear: Normal Nose: Normal Throat: Normal Cardiovascular: Normal. negative: S3, S4, Murmur : Normal Auscultation: Bowel Sounds: Normal Tenderness: Normal Skin: Normal Musculoskeletal: Normal Psychiatric: Normal Mood Description: Calm Affect: Normal Speech Pattern: Clear, Appropriate - Laboratory and Diagnostics Result Diagrams: 08/29/18 05:13 08/29/18 05:13 Labs: 08/26/18 16:05 Sputum - Expectorated Sputum Sputum Culture - Final 08/26/18 16:05 Sputum - Expectorated Sputum - Final 08/25/18 15:45 Urine,Clean Catch Urine Culture - Final Enterococcus Faecalis Laboratory WBC 4.9 X10^3/uL (3.6-10.0) 08/29/18 05:13 RBC 2.61 X10^6/uL (3.5-5.4) L 08/29/18 05:13 Hgb 7.9 g/dL (12.0-16.0) L 08/29/18 05:13 Hct 24.4 % (36.0-47.0) L 08/29/18 05:13 MCV 93.4 fL (80.0-100.0) 08/29/18 05:13 MCH 30.4 pg (27.0-34.0) 08/29/18 05:13 MCHC 32.5 g/dL (33.0-35.0) L 08/29/18 05:13 RDW 14.0 % (11.6-16.5) 08/29/18 05:13 Plt Count 115 X10^3/uL (150.0-450.0) L 08/29/18 05:13 Plt Count Comment Adequate (ADEQUATE) 08/29/18 05:13 MPV 9.3 fL (7.4-11.0) 08/29/18 05:13 Neut % (Auto) 66.0 % (42.0-75.0) 08/29/18 05:13 Lymph % (Auto) 15.2 % (21.0-51.0) L 08/29/18 05:13 [place] % (Auto) 13.4 % (0.0-13.0) H 08/29/18 05:13 Eos % (Auto) 4.8 % (0.9-2.9) H 08/29/18 05:13 Baso % (Auto) 0.6 % (0.2-1.0) 08/29/18 05:13 Neut # (Auto) 3.2 x10^3/uL (2.2-4.8) 08/29/18 05:13 Lymph # (Auto) 0.7 X10^3/uL (1.3-2.9) L 08/29/18 05:13 [place] # (Auto) 0.7 x10^3/uL (0.3-0.8) 08/29/18 05:13 Eos # (Auto) 0.2 x10^3/uL (0.0-0.2) 08/29/18 05:13 Baso # (Auto) 0.0 X10^3/uL (0.0-0.1) 08/29/18 05:13 Absolute Nucleated RBC 0.1 /100WBC 08/29/18 05:13 Plt Morphology Comment Normal (NORMAL) 08/29/18 05:13 RBC Morphology Normal (NORMAL) 08/29/18 05:13 ESR 46 MM/HOUR (0-20) H 08/25/18 15:58 INR Target Range - 08/25/18 14:48 INR 1.16 (0.8-1.3) 08/25/18 14:48 APTT 32.7 SECONDS (22.9-36.5) 08/25/18 14:48 PTT Comment - 08/25/18 14:48 D-Dimer 1680 ng/mL (0-400) H* 08/25/18 14:48 Sample Site Lr 08/26/18 09:37 ABG pH 7.350 (7.35-7.45) 08/26/18 09:37 ABG pCO2 42.0 mmHg (35.0-45.0) 08/26/18 09:37 ABG pO2 53.0 mmHg (80.0-100.0) L 08/26/18 09:37 ABG HCO3 23.2 mmol/L (22-26) 08/26/18 09:37 ABG O2 Saturation 85.0 % (90-100) L 08/26/18 09:37 ABG Base Excess -2.4 mmol/L (-2.0-2.0) L 08/26/18 09:37 Carl Test Pos 08/26/18 09:37 A-a Gradient 44.0 mmHg 08/26/18 09:37 FiO2 21.0 08/26/18 09:37 Blood Gas Comments Pt eric well. cdn 08/26/18 09:37 Sodium 139 mmol/L (136-145) 08/29/18 05:13 Corrected Sodium 139 mmol/L (136-145) 08/29/18 05:13 Potassium 5.6 mmol/L (3.5-5.1) H 08/29/18 05:13 Chloride 107 mmol/L (98-107) 08/29/18 05:13 Carbon Dioxide 22.4 mmol/L (21-32) 08/29/18 05:13 BUN 51 mg/dL (7-18) H 08/29/18 05:13 Creatinine 7.17 mg/dL (0.55-1.02) H 08/29/18 05:13 Est GFR (MDRD) Af Amer 7 (>60) L 08/29/18 05:13 Est GFR (MDRD) Non-Af 6 (>60) L 08/29/18 05:13 Glucose 117 mg/dL (65-99) H 08/29/18 05:13 POC Glucose (mg/dL) 178 mg/dL (65-99) H 08/29/18 20:07 Calcium 8.7 mg/dL (8.5-10.1) 08/29/18 05:13 Corrected Calcium 9.4 mg/dL (8.5-10.1) 08/29/18 05:13 Total Bilirubin 0.30 mg/dL (0.2-1.0) 08/29/18 05:13 AST 13 Units/L (15-37) L 08/29/18 05:13 ALT 11 Units/L (12-78) L 08/29/18 05:13 Alkaline Phosphatase 40 Units/L (46-116) L 08/29/18 05:13 Creatine Kinase 156 Units/L (26-192) 08/25/18 14:48 CK-MB (CK-2) 1.7 ng/mL (0-4.0) 08/25/18 14:48 CK/CKMB % Calc 1.1 % (<4) 08/25/18 14:48 Troponin I < 0.02 ng/mL (0-1.5) 08/25/18 14:48 C-Reactive Protein 5.40 mg/L (0-3.0) H 08/25/18 15:58 Total Protein 7.0 g/dL (6.4-8.2) 08/29/18 05:13 Albumin 3.1 g/dL (3.4-5.0) L 08/29/18 05:13 Globulin 3.9 g/dL (2.5-4.5) 08/29/18 05:13 Albumin/Globulin Ratio 0.8 Ratio (1.1-2.1) L 08/29/18 05:13 Homocysteine 31 umol/L (<=10) H 08/25/18 15:58 Specimen Type Clean catch urine 08/25/18 15:45 Urine Color Yellow (YELLOW) 08/25/18 15:45 Urine Appearance Slightly hazy (CLEAR) 08/25/18 15:45 Urine pH 7.0 (5.0 - 8.0) 08/25/18 15:45 Ur Specific [place] 1.010 (1.000-1.030) 08/25/18 15:45 Urine Protein 4+ (NEGATIVE) 08/25/18 15:45 Urine Glucose (UA) 1+ (NEGATIVE) 08/25/18 15:45 Urine Ketones Negative (NEGATIVE) 08/25/18 15:45 Urine Occult Blood 2+ (NEGATIVE) 08/25/18 15:45 Urine Nitrite Negative (NEGATIVE) 08/25/18 15:45 Urine Bilirubin Negative (NEGATIVE) 08/25/18 15:45 Urine Urobilinogen Normal (NORMAL) 08/25/18 15:45 Ur Leukocyte Esterase 3+ (NEGATIVE) 08/25/18 15:45 Urine RBC 0-2 /HPF (NONE SEEN) 08/25/18 15:45 Urine WBC 10-20 /HPF (NONE SEEN) 08/25/18 15:45 Ur Squamous Epith Cells Rare /HPF (NEGATIVE) 08/25/18 15:45 Urine Bacteria Trace /HPF (NEGATIVE) 08/25/18 15:45 Ur Culture Indicated? Yes/culture set up 08/25/18 15:45 MADAI Screen None detected (None Detected) 08/25/18 15:58 MADAI Titer TNP 08/25/18 15:58 MADAI Pattern TNP 08/25/18 15:58 - Plan (1) CHF (congestive heart failure) Status: Acute Qualifiers: Heart failure type: unspecified Heart failure chronicity: chronic Qualified Code(s): I50.9 - Heart failure, unspecified Plan: OBTAIN ECHO, OBTAIN ABG, C-PAP, IV LASIX, RESPIRATORY TREATMENTS, SUPPLEMENTAL OXYGEN. (2) Acute dyspnea Status: Acute (3) Renal failure (ARF), acute on chronic Status: Acute Qualifiers: Acute renal failure type: unspecified Chronic kidney disease stage: unspecified stage Qualified Code(s): N17.9 - Acute kidney failure, unspecified; N18.9 - Chronic kidney disease, unspecified
[2018-08-30] MEDS: XOPENEX 1.25 MG/3 ML NEBULE NEB SCH ×5 (00:57→17:14)
[2018-08-30 06:19] LABS: BASOPHILS % (AUTO) 0.7 % (0.2-1.0); EOSINOPHILS # (AUTO) 0.3 x10^3/uL (0.0-0.2); EOSINOPHILS % (AUTO) 5.3 % (0.9-2.9); HEMATOCRIT 21.9 % (36.0-47.0); HEMOGLOBIN 7.3 g/dL (12.0-16.0); LYMPHOCYTES # (AUTO) 0.8 X10^3/uL (1.3-2.9); LYMPHOCYTES % (AUTO) 15.5 % (21.0-51.0); MEAN CORPUSCULAR HEMOGLOBIN 30.8 pg (27.0-34.0); MEAN CORPUSCULAR HGB CONC 33.4 g/dL (33.0-35.0); MEAN CORPUSCULAR VOLUME 92.3 fL (80.0-100.0); MEAN PLATELET VOLUME 8.8 fL (7.4-11.0); MONOCYTES # (AUTO) 0.6 x10^3/uL (0.3-0.8); MONOCYTES % (AUTO) 12.7 % (0.0-13.0); NEUTROPHILS # (AUTO) 3.2 x10^3/uL (2.2-4.8); NEUTROPHILS % (AUTO) 65.8 % (42.0-75.0); PLATELET COUNT 110 X10^3/uL (150.0-450.0); RED BLOOD COUNT 2.37 X10^6/uL (3.5-5.4); RED CELL DISTRIBUTION WIDTH 14.6 % (11.6-16.5); WHITE BLOOD COUNT 4.9 X10^3/uL (3.6-10.0)
[2018-08-30 06:38] LABS: ANTITHROMBIN III ACTIVITY 83 % (76-128); PROTEIN C ACTIVITY 86 % (83-168)
[2018-08-30 06:39] LABS: APC RESISTANCE 4.66 (>=2.00); PROTHROMBIN G20210A Negative
[2018-08-30 06:46] LABS: ALBUMIN 3.1 g/dL (3.4-5.0); CALCIUM 8.6 mg/dL (8.5-10.1); CARBON DIOXIDE 22.1 mmol/L (21-32); COR CA(FOR HYPOALB) 9.3 mg/dL (8.5-10.1); CREATININE 7.5 mg/dL (0.55-1.02); TOTAL PROTEIN 7.1 g/dL (6.4-8.2)
[2018-08-30 07:19] LABS: HYPOCHROMASIA SLIGHT; PLATELET MORPHOLOGY COMMENT NORMAL (NORMAL)
[2018-08-30] MEDS: MILK OF MAGNESIA PO SCH ×2 (09:37→09:46)
[2018-08-30] MEDS: ZANTAC PO SCH (09:38)
[2018-08-30] MEDS: LOPRESSOR TAB 25 MG PO SCH ×2 (09:38→20:12)
[2018-08-30] MEDS: PriLOSEC PO SCH (09:38)
[2018-08-30] MEDS: XARELTO PO SCH ×2 (09:38→20:11)
[2018-08-30] MEDS: NORVASC TAB 10 MG PO SCH (09:38)
[2018-08-30] MEDS: MINOXIDIL PO SCH (09:39)
[2018-08-30] MEDS: CIPRO IV 200 MG PREMIX* 200 MG/100 ML BAG IV SCH (09:41)
[2018-08-30] MEDS ORDERED: PROCRIT or EPOGEN SC NR (10:43)
--- NOTE | 2018-08-30 11:11 | PCM.PROG ---
Progress Note - Progress Note for Day of Date of Exam: 08/28/18 - Subjective Subjective: WAS ADMITTED FOR CHF, DYSPNEA, AND RENAL FAILURE. TODAY, SHE IS ALERT AND ORIENTED, LYING IN BED ON MORNING ROUNDS. SHE CONTINUES WITH COMPLAINTS OF SHORTNESS OF BREATH AND COUGH, BUT REPORTS SLIGHT IMPROVEMENT SINCE ADMISSION. ON EXAMINATION, HEART IS REGULAR IN RATE AND RHYTHM. BILATERAL LUNGS ARE NOTED WITH DIMINISHED LUNG SOUNDS THROUGHOUT. ABDOMEN IS ROUND, SOFT, AND NON-TENDER WITH NORMAL BOWEL SOUNDS NOTED IN ALL QUADRANTS. SHE IS NOTED WITH TRACE EDEMA TO HER LOWER EXTREMITIES. HER VITALS THIS MORNING ARE 98.1-74-20-95%-130/83. LABS WERE OBTAINED. ABNORMAL LAB VALUES INCLUDE THE FOLLOWING: RBC 2.65, HGB 8.1, HCT 24.4, PLT COUNT 115, POTASSIUM 5.2, BUN 50, CREATININE 6.85, GLUCOSE 141, AST 13, ALT 9, ALK PHOS 41, ALBUMIN 3.2. URINE AND SPUTUM CULTURE PENDING. A CHEST XRAY WAS OBTAINED TODAY AND REVEALED: Slight decrease in heart size with slowly resolving pulmonary edema. Small bibasilar pleural effusions which are slightly more apparent. TODAY, WE WILL CONTINUE LASIX 20MG IV BID. WE WILL OBTIAN OXYGEN AND CPAP FOR HER AT HOME. OTHERWISE, WE WILL FOLLOW UP WITH AM LABS AND CONTINUE TO MONITOR. - Past Medical Family Social History Past Med/Fam/Surg Hx: No changes since H&P Allergies: Allergies iodine Allergy (Verified 08/25/18 14:38) - Review of Systems ROS: No change since H&P - Vital Signs and I&O's Vital Signs: Temperature 99.0 F Pulse Rate [Left Brachial] 72 Pulse Rate [Apical] 70 Pulse Rate 70 Respiratory Rate 20 Blood Pressure [Left Arm] 122/56 Blood Pressure [Right Arm] 96/46 Blood Pressure 170/72 O2 Sat by Pulse Oximetry 99 Intake and Output: Intake & Output 08/27/18 08/28/18 08/29/18 08/30/18 11:59 11:59 11:59 11:59 Intake Total 820 / 820 1161 / 1161 1082 / 1082 1330 / 1330 Balance 820 / 820 1161 / 1161 1082 / 1082 1330 / 1330 - Physical Exam Oriented: Normal Eyes: Normal Ear: Normal Nose: Normal Throat: Normal Respiratory: Generalized, Diminished Cardiovascular: Edema (TRACE EDEMA TO LOWER EXTREMITIES ). negative: S3, S4, Murmur : Normal Auscultation: Bowel Sounds: Normal Palpation: Normal Tenderness: Normal Skin: Normal Musculoskeletal: Normal Psychiatric: Normal Mood Description: Calm Affect: Normal Speech Pattern: Clear, Appropriate - Laboratory and Diagnostics Result Diagrams: 08/30/18 05:47 08/30/18 05:47 Labs: 08/26/18 16:05 Sputum - Expectorated Sputum Sputum Culture - Final 08/26/18 16:05 Sputum - Expectorated Sputum - Final 08/25/18 15:45 Urine,Clean Catch Urine Culture - Final Enterococcus Faecalis Laboratory WBC 4.9 X10^3/uL (3.6-10.0) 08/30/18 05:47 RBC 2.37 X10^6/uL (3.5-5.4) L 08/30/18 05:47 Hgb 7.3 g/dL (12.0-16.0) L 08/30/18 05:47 Hct 21.9 % (36.0-47.0) L 08/30/18 05:47 MCV 92.3 fL (80.0-100.0) 08/30/18 05:47 MCH 30.8 pg (27.0-34.0) 08/30/18 05:47 MCHC 33.4 g/dL (33.0-35.0) 08/30/18 05:47 RDW 14.6 % (11.6-16.5) 08/30/18 05:47 Plt Count 110 X10^3/uL (150.0-450.0) L 08/30/18 05:47 Plt Count Comment Adequate (ADEQUATE) 08/30/18 05:47 MPV 8.8 fL (7.4-11.0) 08/30/18 05:47 Neut % (Auto) 65.8 % (42.0-75.0) 08/30/18 05:47 Lymph % (Auto) 15.5 % (21.0-51.0) L 08/30/18 05:47 [place] % (Auto) 12.7 % (0.0-13.0) 08/30/18 05:47 Eos % (Auto) 5.3 % (0.9-2.9) H 08/30/18 05:47 Baso % (Auto) 0.7 % (0.2-1.0) 08/30/18 05:47 Neut # (Auto) 3.2 x10^3/uL (2.2-4.8) 08/30/18 05:47 Lymph # (Auto) 0.8 X10^3/uL (1.3-2.9) L 08/30/18 05:47 [place] # (Auto) 0.6 x10^3/uL (0.3-0.8) 08/30/18 05:47 Eos # (Auto) 0.3 x10^3/uL (0.0-0.2) H 08/30/18 05:47 Baso # (Auto) 0.0 X10^3/uL (0.0-0.1) 08/30/18 05:47 Absolute Nucleated RBC 0.0 /100WBC 08/30/18 05:47 Plt Morphology Comment Normal (NORMAL) 08/30/18 05:47 RBC Morphology Abnormal (NORMAL) A 08/30/18 05:47 Hypochromasia Slight A 08/30/18 05:47 ESR 46 MM/HOUR (0-20) H 08/25/18 15:58 PT 14.6 08/25/18 15:58 INR Target Range - 08/25/18 14:48 INR 1.16 (0.8-1.3) 08/25/18 14:48 APTT 32.7 SECONDS (22.9-36.5) 08/25/18 14:48 PTT Heparin Neutraliz TNP 08/25/18 15:58 PTT Comment - 08/25/18 14:48 Reptilase Time TNP 08/25/18 15:58 D-Dimer 1680 ng/mL (0-400) H* 08/25/18 14:48 Plt Neutralization TNP 08/25/18 15:58 LA PTT Screen 43 08/25/18 15:58 Lupus Anticoag PTT Mix TNP 08/25/18 15:58 LA Thrombin Time TNP 08/25/18 15:58 LA dRVVT Screen Ratio 41 08/25/18 15:58 dRVVT Confirm Interp TNP 08/25/18 15:58 dRVVT Mix Interpret TNP 08/25/18 15:58 Hexag Phospholip Neutrl TNP 08/25/18 15:58 Lupus Anticoag Interp See note 08/25/18 15:58 Prot C Funct Activity 86 % (83-168) 08/25/18 15:58 APC Resistance Ratio 4.66 (>=2.00) 08/25/18 15:58 Protein S Activity 90 % (57-131) 08/25/18 15:58 Antithrombin III Activ 83 % (76-128) 08/25/18 15:58 Sample Site Lr 08/26/18 09:37 ABG pH 7.350 (7.35-7.45) 08/26/18 09:37 ABG pCO2 42.0 mmHg (35.0-45.0) 08/26/18 09:37 ABG pO2 53.0 mmHg (80.0-100.0) L 08/26/18 09:37 ABG HCO3 23.2 mmol/L (22-26) 08/26/18 09:37 ABG O2 Saturation 85.0 % (90-100) L 08/26/18 09:37 ABG Base Excess -2.4 mmol/L (-2.0-2.0) L 08/26/18 09:37 Carl Test Pos 08/26/18 09:37 A-a Gradient 44.0 mmHg 08/26/18 09:37 FiO2 21.0 08/26/18 09:37 Blood Gas Comments Pt eric well. cdn 08/26/18 09:37 Sodium 139 mmol/L (136-145) 08/30/18 05:47 Corrected Sodium 139 mmol/L (136-145) 08/30/18 05:47 Potassium 6.1 mmol/L (3.5-5.1) H* 08/30/18 05:47 Chloride 108 mmol/L (98-107) H 08/30/18 05:47 Carbon Dioxide 22.1 mmol/L (21-32) 08/30/18 05:47 BUN 53 mg/dL (7-18) H 08/30/18 05:47 Creatinine 7.50 mg/dL (0.55-1.02) H 08/30/18 05:47 Est GFR (MDRD) Af Amer 7 (>60) L 08/30/18 05:47 Est GFR (MDRD) Non-Af 6 (>60) L 08/30/18 05:47 Glucose 114 mg/dL (65-99) H 08/30/18 05:47 POC Glucose (mg/dL) 123 mg/dL (65-99) H 08/30/18 05:12 Calcium 8.6 mg/dL (8.5-10.1) 08/30/18 05:47 Corrected Calcium 9.3 mg/dL (8.5-10.1) 08/30/18 05:47 Total Bilirubin 0.30 mg/dL (0.2-1.0) 08/30/18 05:47 AST 14 Units/L (15-37) L 08/30/18 05:47 ALT 10 Units/L (12-78) L 08/30/18 05:47 Alkaline Phosphatase 40 Units/L (46-116) L 08/30/18 05:47 Creatine Kinase 156 Units/L (26-192) 08/25/18 14:48 CK-MB (CK-2) 1.7 ng/mL (0-4.0) 08/25/18 14:48 CK/CKMB % Calc 1.1 % (<4) 08/25/18 14:48 Troponin I < 0.02 ng/mL (0-1.5) 08/25/18 14:48 C-Reactive Protein 5.40 mg/L (0-3.0) H 08/25/18 15:58 Total Protein 7.1 g/dL (6.4-8.2) 08/30/18 05:47 Albumin 3.1 g/dL (3.4-5.0) L 08/30/18 05:47 Globulin 4.0 g/dL (2.5-4.5) 08/30/18 05:47 Albumin/Globulin Ratio 0.8 Ratio (1.1-2.1) L 08/30/18 05:47 Homocysteine 31 umol/L (<=10) H 08/25/18 15:58 Specimen Type Clean catch urine 08/25/18 15:45 Urine Color Yellow (YELLOW) 08/25/18 15:45 Urine Appearance Slightly hazy (CLEAR) 08/25/18 15:45 Urine pH 7.0 (5.0 - 8.0) 08/25/18 15:45 Ur Specific [place] 1.010 (1.000-1.030) 08/25/18 15:45 Urine Protein 4+ (NEGATIVE) 08/25/18 15:45 Urine Glucose (UA) 1+ (NEGATIVE) 08/25/18 15:45 Urine Ketones Negative (NEGATIVE) 08/25/18 15:45 Urine Occult Blood 2+ (NEGATIVE) 08/25/18 15:45 Urine Nitrite Negative (NEGATIVE) 08/25/18 15:45 Urine Bilirubin Negative (NEGATIVE) 08/25/18 15:45 Urine Urobilinogen Normal (NORMAL) 08/25/18 15:45 Ur Leukocyte Esterase 3+ (NEGATIVE) 08/25/18 15:45 Urine RBC 0-2 /HPF (NONE SEEN) 08/25/18 15:45 Urine WBC 10-20 /HPF (NONE SEEN) 08/25/18 15:45 Ur Squamous Epith Cells Rare /HPF (NEGATIVE) 08/25/18 15:45 Urine Bacteria Trace /HPF (NEGATIVE) 08/25/18 15:45 Ur Culture Indicated? Yes/culture set up 08/25/18 15:45 MADAI Screen None detected (None Detected) 08/25/18 15:58 MADAI Titer TNP 08/25/18 15:58 MADAI Pattern TNP 08/25/18 15:58 Prothrombin [id number] Mut Negative 08/25/18 15:58 Prothromb Gene Review Not Reportable 08/25/18 15:58 - Plan (1) CHF (congestive heart failure) Status: Acute Qualifiers: Heart failure type: unspecified Heart failure chronicity: chronic Qualified Code(s): I50.9 - Heart failure, unspecified Plan: C-PAP, IV LASIX, RESPIRATORY TREATMENTS, SUPPLEMENTAL OXYGEN. (2) Acute dyspnea Status: Acute (3) Renal failure (ARF), acute on chronic Status: Acute Qualifiers: Acute renal failure type: unspecified Chronic kidney disease stage: unspecified stage Qualified Code(s): N17.9 - Acute kidney failure, unspecified; N18.9 - Chronic kidney disease, unspecified
--- NOTE | 2018-08-30 11:17 | PCM.PROG ---
Progress Note - Progress Note for Day of Date of Exam: 08/29/18 - Subjective Subjective: WAS ADMITTED FOR CHF, DYSPNEA, AND RENAL FAILURE. TODAY, SHE IS ALERT AND ORIENTED, LYING IN BED ON MORNING ROUNDS. SHE CONTINUES WITH COMPLAINTS OF SHORTNESS OF BREATH AND COUGH, BUT REPORTS SLIGHT IMPROVEMENT SINCE ADMISSION. ON EXAMINATION, HEART IS REGULAR IN RATE AND RHYTHM. BILATERAL LUNGS ARE NOTED WITH DIMINISHED LUNG SOUNDS THROUGHOUT. ABDOMEN IS ROUND, SOFT, AND NON-TENDER WITH NORMAL BOWEL SOUNDS NOTED IN ALL QUADRANTS. SHE IS NOTED WITH TRACE EDEMA TO HER LOWER EXTREMITIES. HER VITALS THIS MORNING ARE 99.0-72-18-95%-96/46. LABS WERE OBTAINED. ABNORMAL LAB VALUES INCLUDE THE FOLLOWING: RBC 2.61, HGB 7.9, HCT 24.4, PLT COUNT 115, POTASSIUM 5.2, BUN 50, CREAETININE 6.85, GLUCOSE 141, AST 13, ALT 9, ALK PHOS 41, ALBUMIN 3.2. URINE AND SPUTUM CULTURE PENDING. HER ECHO REVEALED AN EJECTION FRACTION OF 53%. SHE REPORTS BEING FOLLOWED BY A CAN REPAIRER. SHE REPORTS THAT SHE IS GETTING READY TO START DIALYSIS. TODAY, WE WILL HOLD THE LASIX DUE TO INCREASED CREATININE. OTHERWISE, WE WILL CONTINUE WITH CURRENT PLAN OF CARE. WE WILL FOLLOW UP WITH AM LABS AND CONTINUE TO MONITOR. - Past Medical Family Social History Past Med/Fam/Surg Hx: No changes since H&P Allergies: Allergies iodine Allergy (Verified 08/25/18 14:38) - Review of Systems ROS: No change since H&P - Vital Signs and I&O's Vital Signs: Temperature 99.0 F Pulse Rate [Left Brachial] 72 Pulse Rate [Apical] 70 Pulse Rate 70 Respiratory Rate 20 Blood Pressure [Left Arm] 122/56 Blood Pressure [Right Arm] 96/46 Blood Pressure 170/72 O2 Sat by Pulse Oximetry 99 Intake and Output: Intake & Output 08/27/18 08/28/18 08/29/18 08/30/18 11:59 11:59 11:59 11:59 Intake Total 820 / 820 1161 / 1161 1082 / 1082 1330 / 1330 Balance 820 / 820 1161 / 1161 1082 / 1082 1330 / 1330 - Physical Exam Oriented: Normal Eyes: Normal Ear: Normal Nose: Normal Throat: Normal Respiratory: Generalized, Diminished Cardiovascular: Edema (TRACE EDEMA TO LOWER EXTREMITIES ). negative: S3, S4, Murmur : Normal Auscultation: Bowel Sounds: Normal Tenderness: Normal Skin: Normal Musculoskeletal: Normal Psychiatric: Normal Mood Description: Calm Affect: Normal Speech Pattern: Clear, Appropriate - Laboratory and Diagnostics Result Diagrams: 08/30/18 05:47 08/30/18 05:47 Labs: 08/26/18 16:05 Sputum - Expectorated Sputum Sputum Culture - Final 08/26/18 16:05 Sputum - Expectorated Sputum - Final 08/25/18 15:45 Urine,Clean Catch Urine Culture - Final Enterococcus Faecalis Laboratory WBC 4.9 X10^3/uL (3.6-10.0) 08/30/18 05:47 RBC 2.37 X10^6/uL (3.5-5.4) L 08/30/18 05:47 Hgb 7.3 g/dL (12.0-16.0) L 08/30/18 05:47 Hct 21.9 % (36.0-47.0) L 08/30/18 05:47 MCV 92.3 fL (80.0-100.0) 08/30/18 05:47 MCH 30.8 pg (27.0-34.0) 08/30/18 05:47 MCHC 33.4 g/dL (33.0-35.0) 08/30/18 05:47 RDW 14.6 % (11.6-16.5) 08/30/18 05:47 Plt Count 110 X10^3/uL (150.0-450.0) L 08/30/18 05:47 Plt Count Comment Adequate (ADEQUATE) 08/30/18 05:47 MPV 8.8 fL (7.4-11.0) 08/30/18 05:47 Neut % (Auto) 65.8 % (42.0-75.0) 08/30/18 05:47 Lymph % (Auto) 15.5 % (21.0-51.0) L 08/30/18 05:47 [place] % (Auto) 12.7 % (0.0-13.0) 08/30/18 05:47 Eos % (Auto) 5.3 % (0.9-2.9) H 08/30/18 05:47 Baso % (Auto) 0.7 % (0.2-1.0) 08/30/18 05:47 Neut # (Auto) 3.2 x10^3/uL (2.2-4.8) 08/30/18 05:47 Lymph # (Auto) 0.8 X10^3/uL (1.3-2.9) L 08/30/18 05:47 [place] # (Auto) 0.6 x10^3/uL (0.3-0.8) 08/30/18 05:47 Eos # (Auto) 0.3 x10^3/uL (0.0-0.2) H 08/30/18 05:47 Baso # (Auto) 0.0 X10^3/uL (0.0-0.1) 08/30/18 05:47 Absolute Nucleated RBC 0.0 /100WBC 08/30/18 05:47 Plt Morphology Comment Normal (NORMAL) 08/30/18 05:47 RBC Morphology Abnormal (NORMAL) A 08/30/18 05:47 Hypochromasia Slight A 08/30/18 05:47 ESR 46 MM/HOUR (0-20) H 08/25/18 15:58 PT 14.6 08/25/18 15:58 INR Target Range - 08/25/18 14:48 INR 1.16 (0.8-1.3) 08/25/18 14:48 APTT 32.7 SECONDS (22.9-36.5) 08/25/18 14:48 PTT Heparin Neutraliz TNP 08/25/18 15:58 PTT Comment - 08/25/18 14:48 Reptilase Time TNP 08/25/18 15:58 D-Dimer 1680 ng/mL (0-400) H* 08/25/18 14:48 Plt Neutralization TNP 08/25/18 15:58 LA PTT Screen 43 08/25/18 15:58 Lupus Anticoag PTT Mix TNP 08/25/18 15:58 LA Thrombin Time TNP 08/25/18 15:58 LA dRVVT Screen Ratio 41 08/25/18 15:58 dRVVT Confirm Interp TNP 08/25/18 15:58 dRVVT Mix Interpret TNP 08/25/18 15:58 Hexag Phospholip Neutrl TNP 08/25/18 15:58 Lupus Anticoag Interp See note 08/25/18 15:58 Prot C Funct Activity 86 % (83-168) 08/25/18 15:58 APC Resistance Ratio 4.66 (>=2.00) 08/25/18 15:58 Protein S Activity 90 % (57-131) 08/25/18 15:58 Antithrombin III Activ 83 % (76-128) 08/25/18 15:58 Sample Site Lr 08/26/18 09:37 ABG pH 7.350 (7.35-7.45) 08/26/18 09:37 ABG pCO2 42.0 mmHg (35.0-45.0) 08/26/18 09:37 ABG pO2 53.0 mmHg (80.0-100.0) L 08/26/18 09:37 ABG HCO3 23.2 mmol/L (22-26) 08/26/18 09:37 ABG O2 Saturation 85.0 % (90-100) L 08/26/18 09:37 ABG Base Excess -2.4 mmol/L (-2.0-2.0) L 08/26/18 09:37 Carl Test Pos 08/26/18 09:37 A-a Gradient 44.0 mmHg 08/26/18 09:37 FiO2 21.0 08/26/18 09:37 Blood Gas Comments Pt eric well. cdn 08/26/18 09:37 Sodium 139 mmol/L (136-145) 08/30/18 05:47 Corrected Sodium 139 mmol/L (136-145) 08/30/18 05:47 Potassium 6.1 mmol/L (3.5-5.1) H* 08/30/18 05:47 Chloride 108 mmol/L (98-107) H 08/30/18 05:47 Carbon Dioxide 22.1 mmol/L (21-32) 08/30/18 05:47 BUN 53 mg/dL (7-18) H 08/30/18 05:47 Creatinine 7.50 mg/dL (0.55-1.02) H 08/30/18 05:47 Est GFR (MDRD) Af Amer 7 (>60) L 08/30/18 05:47 Est GFR (MDRD) Non-Af 6 (>60) L 08/30/18 05:47 Glucose 114 mg/dL (65-99) H 08/30/18 05:47 POC Glucose (mg/dL) 123 mg/dL (65-99) H 08/30/18 05:12 Calcium 8.6 mg/dL (8.5-10.1) 08/30/18 05:47 Corrected Calcium 9.3 mg/dL (8.5-10.1) 08/30/18 05:47 Total Bilirubin 0.30 mg/dL (0.2-1.0) 08/30/18 05:47 AST 14 Units/L (15-37) L 08/30/18 05:47 ALT 10 Units/L (12-78) L 08/30/18 05:47 Alkaline Phosphatase 40 Units/L (46-116) L 08/30/18 05:47 Creatine Kinase 156 Units/L (26-192) 08/25/18 14:48 CK-MB (CK-2) 1.7 ng/mL (0-4.0) 08/25/18 14:48 CK/CKMB % Calc 1.1 % (<4) 08/25/18 14:48 Troponin I < 0.02 ng/mL (0-1.5) 08/25/18 14:48 C-Reactive Protein 5.40 mg/L (0-3.0) H 08/25/18 15:58 Total Protein 7.1 g/dL (6.4-8.2) 08/30/18 05:47 Albumin 3.1 g/dL (3.4-5.0) L 08/30/18 05:47 Globulin 4.0 g/dL (2.5-4.5) 08/30/18 05:47 Albumin/Globulin Ratio 0.8 Ratio (1.1-2.1) L 08/30/18 05:47 Homocysteine 31 umol/L (<=10) H 08/25/18 15:58 Specimen Type Clean catch urine 08/25/18 15:45 Urine Color Yellow (YELLOW) 08/25/18 15:45 Urine Appearance Slightly hazy (CLEAR) 08/25/18 15:45 Urine pH 7.0 (5.0 - 8.0) 08/25/18 15:45 Ur Specific [place] 1.010 (1.000-1.030) 08/25/18 15:45 Urine Protein 4+ (NEGATIVE) 08/25/18 15:45 Urine Glucose (UA) 1+ (NEGATIVE) 08/25/18 15:45 Urine Ketones Negative (NEGATIVE) 08/25/18 15:45 Urine Occult Blood 2+ (NEGATIVE) 08/25/18 15:45 Urine Nitrite Negative (NEGATIVE) 08/25/18 15:45 Urine Bilirubin Negative (NEGATIVE) 08/25/18 15:45 Urine Urobilinogen Normal (NORMAL) 08/25/18 15:45 Ur Leukocyte Esterase 3+ (NEGATIVE) 08/25/18 15:45 Urine RBC 0-2 /HPF (NONE SEEN) 08/25/18 15:45 Urine WBC 10-20 /HPF (NONE SEEN) 08/25/18 15:45 Ur Squamous Epith Cells Rare /HPF (NEGATIVE) 08/25/18 15:45 Urine Bacteria Trace /HPF (NEGATIVE) 08/25/18 15:45 Ur Culture Indicated? Yes/culture set up 08/25/18 15:45 MADAI Screen None detected (None Detected) 08/25/18 15:58 MADAI Titer TNP 08/25/18 15:58 MAD[facility] Pattern TNP 08/25/18 15:58 Prothrombin [id number] Mut Negative 08/25/18 15:58 Prothromb Gene Review Not Reportable 08/25/18 15:58 - Plan (1) CHF (congestive heart failure) Status: Acute Qualifiers: Heart failure type: unspecified Heart failure chronicity: chronic Qualified Code(s): I50.9 - Heart failure, unspecified Plan: C-PAP, RESPIRATORY TREATMENTS, SUPPLEMENTAL OXYGEN. (2) Acute dyspnea Status: Acute (3) Renal failure (ARF), acute on chronic Status: Acute Qualifiers: Acute renal failure type: unspecified Chronic kidney disease stage: unspecified stage Qualified Code(s): N17.9 - Acute kidney failure, unspecified; N18.9 - Chronic kidney disease, unspecified Plan: HOLD LASIX, CONTINUE TO MONITOR
[2018-08-30] MEDS: CARDURA PO SCH (20:11)
[2018-08-30] MEDS: ZOCOR TAB 20 MG PO SCH (20:11)
[2018-08-30] MEDS ORDERED: VISTARIL PO PRN (20:29)
[2018-08-30] MEDS: AMBIEN PO SCH (21:16)
[2018-08-30] MEDS: SNACK - Diabetic Appropriate PO SCH (21:17)
[2018-08-31] MEDS: XOPENEX 1.25 MG/3 ML NEBULE NEB SCH ×2 (00:51→05:34)
[2018-08-31 05:48] LABS: BASOPHILS % (AUTO) 0.7 % (0.2-1.0); EOSINOPHILS # (AUTO) 0.3 x10^3/uL (0.0-0.2); EOSINOPHILS % (AUTO) 6.7 % (0.9-2.9); HEMATOCRIT 22.7 % (36.0-47.0); HEMOGLOBIN 7.5 g/dL (12.0-16.0); LYMPHOCYTES # (AUTO) 0.7 X10^3/uL (1.3-2.9); LYMPHOCYTES % (AUTO) 17.1 % (21.0-51.0); MEAN CORPUSCULAR HGB CONC 33.2 g/dL (33.0-35.0); MEAN CORPUSCULAR VOLUME 93.2 fL (80.0-100.0); MEAN PLATELET VOLUME 9.2 fL (7.4-11.0); MONOCYTES # (AUTO) 0.6 x10^3/uL (0.3-0.8); MONOCYTES % (AUTO) 14.5 % (0.0-13.0); NEUTROPHILS # (AUTO) 2.5 x10^3/uL (2.2-4.8); PLATELET COUNT 115 X10^3/uL (150.0-450.0); RED BLOOD COUNT 2.43 X10^6/uL (3.5-5.4); RED CELL DISTRIBUTION WIDTH 14.2 % (11.6-16.5); WHITE BLOOD COUNT 4.2 X10^3/uL (3.6-10.0)
[2018-08-31 06:12] LABS: ALANINE AMINOTRANSFERASE 9 Units/L (12-78); ALBUMIN 3.1 g/dL (3.4-5.0); ALKALINE PHOSPHATASE 40 Units/L (46-116); ASPARTATE AMINO TRANSFERASE 13 Units/L (15-37); BLOOD UREA NITROGEN 58 mg/dL (7-18); CALCIUM 8.7 mg/dL (8.5-10.1); CARBON DIOXIDE 22.1 mmol/L (21-32); CHLORIDE 108 mmol/L (98-107); COR CA(FOR HYPOALB) 9.4 mg/dL (8.5-10.1); CREATININE 7.82 mg/dL (0.55-1.02); SODIUM 140 mmol/L (136-145); TOTAL PROTEIN 6.9 g/dL (6.4-8.2); eGFR NON BLACK RACES 5 (>60)
[2018-08-31 06:45] LABS: HYPOCHROMASIA SLIGHT; PLATELET MORPHOLOGY COMMENT NORMAL (NORMAL)
--- NOTE | 2018-08-31 06:52 | RAD ---
HISTORY: Shortness of breath Study: Chest AP portable Comparison: 08/28/2018 Findings: The heart remains enlarged. The nolan are prominent and indistinct and interstitial edema has increased since the prior examination. No definite alveolar edema or alveolar infiltrates identified. Right pleural effusion is increasing. The bony thorax is unremarkable. IMPRESSION: Continued cardiomegaly with worsening congestive heart failure when compared with the prior examination Increasing right pleural effusion Reported By:
[2018-08-31] MEDS: CIPRO IV 200 MG PREMIX* 200 MG/100 ML BAG IV SCH (08:00)
[2018-08-31] MEDS: LOPRESSOR TAB 25 MG PO SCH (08:01)
[2018-08-31] MEDS: MINOXIDIL PO SCH (08:01)
[2018-08-31] MEDS: NORVASC TAB 10 MG PO SCH (08:01)
[2018-08-31] MEDS: XARELTO PO SCH (08:01)
[2018-08-31] MEDS: PriLOSEC PO SCH (08:01)
[2018-08-31] MEDS: ZANTAC PO SCH (08:01)
[2018-08-31] MEDS: MILK OF MAGNESIA PO SCH (08:04)
[2018-08-31] MEDS ORDERED: TYLENOL 325 MG TAB PO PRN (09:44)
[2018-08-31 10:43] VITALS: BP 163/71
== END 2018-08-31 01:30 | disposition home or self-care (01) | DRG 292 ==
LOC: ER 14:35 → MED/SURG 14:35 → OBSVTOIN 15:43 → MED/SURG 17:33
PROVIDERS: ADMIT Internal Medicine; ATTEND Internal Medicine
DX: I13.2 Hypertensive heart and chronic kidney disease with heart failure and with stage 5 chronic kidney disease, or end stage renal disease; R06.02 Shortness of breath; R07.89 Other chest pain; E11.22 Type 2 diabetes mellitus with diabetic chronic kidney disease; R79.82 Elevated C-reactive protein (CRP); N18.5 Chronic kidney disease, stage 5; N17.9 Acute kidney failure, unspecified; R79.1 Abnormal coagulation profile; B95.2 Enterococcus as the cause of diseases classified elsewhere; J90 Pleural effusion, not elsewhere classified; R60.0 Localized edema; N39.0 Urinary tract infection, site not specified
CPT/HCPCS: 36415; 36600; 71010; 71045; 80053; 81001; 81240; 82550; 82553; 82615; 82803; 83090; 84484; 85025; 85300; 85303; 85305; 85306; 85307; 85378; 85597; 85610; 85613; 85635; 85652; 85670; 85730; 85732; 86038; 86140; 86308; 87070; 87086; 87088; 87186; 87205; 93005; 93306; 94640; 94660; 94760; 96365; 96374; 99284; A4216; A4222; A4618; A7030; Q0177; J0744; J0885; J1815; J1940; J7050